=== PATIENT | female | born 1985 | race Caucasian/White ===

== ENCOUNTER → 2020-04-08 12:40 | Outpatient (BNVA) | payer OTHER, SELFPAY | PROVIDERS: Family Provider Registered Nurse; PCP Registered Nurse; Referring Provider Registered Nurse; Visit Provider Specialist | DX: G62.9 Polyneuropathy, unspecified (principal); R20.0 Anesthesia of skin; R20.2 Paresthesia of skin | CPT/HCPCS: 99204 ==

== ENCOUNTER → 2020-04-15 10:37 | Outpatient (BNVA) | payer OTHER, MEDICAID, SELFPAY | PROVIDERS: Family Provider Registered Nurse; PCP Registered Nurse; Visit Provider Specialist | DX: R20.0 Anesthesia of skin (principal); G62.9 Polyneuropathy, unspecified | CPT/HCPCS: 95913 ==

== ENCOUNTER 2020-05-07 10:33 | Outpatient (CLI) | payer MEDICAID, SELFPAY ==
--- NOTE | 2020-05-07 11:00 | MR_ITS ---
WS: [id number] MRI THORACIC SPINE with and without contrast HISTORY: numbness COMPARISON: None available. TECHNIQUE: Multiplanar sequences are performed in sagittal and axial planes. Postcontrast imaging in 2 planes. Normal thoracic alignment. No significant disc desiccation. No marrow edema or fracture. Signal withi n the cord is normal with no enhancement. Conus tapers normally at the L1 level. T1-2: Small nerve root diverticulum on the LEFT. T2-3: Normal. T3-4: Normal. T4-5: Normal. T5-6: Normal. T6-7: Normal. T7-8: Normal. T8-9: Normal. T9-10: Small nerve root diverticulum on the RIGHT. No stenosis. Mild facet joint arthropathy bilater ally. T10-11: Small nerve root sleeve diverticulum on the LEFT and mild facet arthritis. No significant st enosis. T11-12: RIGHT nerve root sleeve diverticulum without stenosis. No enhancing lesions within the cord. Normal-sized cord. Cortical cyst posterior LEFT kidney. MR/MR thoracic spine wo/w [id number] IMPRESSION: 1. No enhancing lesions or demyelinating lesions thoracic cord. 2. Multilevel small nerve root sleeve diverticula as above. No stenosis.
--- NOTE | 2020-05-07 11:45 | MR_ITS ---
WS: [id number] MRI CERVICAL SPINE with and without contrast. HISTORY: numbness and tingling COMPARISON: None available. Multiplanar, multisequence imaging is performed through the cervical spine with and without contrast. Straightening of the normal cervical lordosis. No marrow edema or fracture. Signal within the cervical cord is normal. Visualized posterior fossa is unremarkable. Craniocervical junction, C1 and C2 relationship, odontoid process and soft tissues are normal. C2-C3: Normal. C3-C4: Moderate size central disc protrusion with cord contact and mild deformity ventrally. Mild rodrigue tral stenosis. C4-C5: Normal. C5-C6: Mild osteophytic ridging with a small central disc protrusion with mild contact on the cord. M ild central stenosis. C6-C7: Mild annular disc bulging with a central disc protrusion. No cord contact. C7-T1: Normal. No enhancing lesions throughout the cervical cord or soft tissues of the neck. There is no evidence f or discitis or osteomyelitis. No demyelinating lesions. MR/MR cervical spine wo/w [id number] IMPRESSION: 1. No abnormal enhancement within the cervical cord or demyelinating lesions. 2. Central disc protrusions and cord contact at C3-4 and C5-6. 3. Smaller central protrusion without cord contact at C6-7.
== END 2020-05-07 10:34 | disposition home or self-care (01) ==
LOC: RADSHAW 10:38
PROVIDERS: PCP Registered Nurse; Visit Provider Specialist
DX: R20.0 Anesthesia of skin (principal); R20.2 Paresthesia of skin; M50.21 Other cervical disc displacement, high cervical region
CPT/HCPCS: 72156; 72157; A9579

== ENCOUNTER → 2020-05-14 14:24 | Outpatient (BNVA) | payer MEDICAID, SELFPAY | PROVIDERS: Family Provider Registered Nurse; PCP Registered Nurse; Visit Provider Internal Medicine Rheumatology | DX: M25.50 Pain in unspecified joint (principal); Z79.899 Other long term (current) drug therapy; G56.03 Carpal tunnel syndrome, bilateral upper limbs; R20.0 Anesthesia of skin; R20.2 Paresthesia of skin; R76.8 Other specified abnormal immunological findings in serum | CPT/HCPCS: 36415; 80076; 81001; 82306; 82565; 82570; 84156; 85025; 85651; 86140; 86431; 99204 ==

== ENCOUNTER 2020-05-15 10:19 | Outpatient (CLI) | payer MEDICAID, SELFPAY ==
--- NOTE | 2020-05-15 10:42 | XR_ITS ---
WS: [id number] Left foot, 3 views, 05/15/2020 Clinical Data: joint pain Comparison: Left foot, 03/09/2015. Findings: No fractures or dislocations are seen. No bone destruction or erosion is noted. The joint spaces and soft tissues are normal. XR/XR foot LT min 3V* [id number] Impression: Negative left foot.
--- NOTE | 2020-05-15 10:42 | XR_ITS ---
WS: [id number] Left hand, 05/15/2020 Clinical Data: joint pain Comparison: None. Findings: No fractures or dislocations are seen. The soft tissues are unremarkable. The joint spaces are normal XR/XR hand LT min 3V* [id number] Impression: Negative left hand.
--- NOTE | 2020-05-15 10:42 | XR_ITS ---
WS: [id number] Right foot, 3 views, 05/15/2020 Clinical Data: joint pain Comparison: None. Findings: No fractures or dislocations are seen. No bone destruction or erosion is noted. The joint spaces and soft tissues are normal. XR/XR foot RT min 3V* [id number] Impression: Negative right foot.
--- NOTE | 2020-05-15 10:42 | XR_ITS ---
WS: [id number] Right hand, 3 views, 05/15/2020 Clinical Data: joint pain Comparison: None. Findings: No fractures or dislocations are seen. The soft tissues are unremarkable. The joint space s are normal XR/XR hand RT min 3V* [id number] Impression: Negative right hand.
== END 2020-05-15 10:20 | disposition home or self-care (01) ==
LOC: RADWPI 10:23
PROVIDERS: Family Provider Registered Nurse; PCP Registered Nurse; Visit Provider Internal Medicine Rheumatology
DX: M25.541 Pain in joints of right hand (principal); M25.542 Pain in joints of left hand; M25.572 Pain in left ankle and joints of left foot; M25.571 Pain in right ankle and joints of right foot
CPT/HCPCS: 73130; 73630

== ENCOUNTER → 2020-06-10 10:39 | Outpatient (BNVA) | payer OTHER, SELFPAY | PROVIDERS: Family Provider Registered Nurse; PCP Registered Nurse; Visit Provider Specialist | DX: G56.03 Carpal tunnel syndrome, bilateral upper limbs (principal); R25.1 Tremor, unspecified; M79.7 Fibromyalgia | CPT/HCPCS: 99214 ==

== ENCOUNTER 2020-06-10 12:09 | Outpatient (CLI) | payer MEDICAID, SELFPAY ==
[2020-06-10 13:10] LABS: Free T4 Free Thyroxine 0.94 ng/dL (0.82-1.77); Thyroid Stimulating Hormone 1.62 uIU/mL (0.27-4.20)
== END 2020-06-10 12:10 | disposition home or self-care (01) ==
LOC: LAB 12:09
PROVIDERS: PCP Registered Nurse; Visit Provider Specialist
DX: R20.0 Anesthesia of skin (principal); R20.2 Paresthesia of skin
CPT/HCPCS: 36415; 84439; 84443

== ENCOUNTER → 2020-06-11 15:16 | Outpatient (BNVA) | payer MEDICAID, SELFPAY | PROVIDERS: PCP Registered Nurse; Visit Provider Registered Nurse | DX: R30.0 Dysuria (principal); B37.49 Other urogenital candidiasis | CPT/HCPCS: 81000 ==

== ENCOUNTER → 2020-06-17 13:21 | Outpatient (BNVA) | payer MEDICAID, SELFPAY | PROVIDERS: PCP Registered Nurse; Visit Provider Internal Medicine Rheumatology | DX: M25.50 Pain in unspecified joint (principal); Z79.899 Other long term (current) drug therapy; R76.8 Other specified abnormal immunological findings in serum; M79.7 Fibromyalgia; G56.03 Carpal tunnel syndrome, bilateral upper limbs | CPT/HCPCS: 99214 ==

== ENCOUNTER 2020-06-25 08:00 | Day surgery (SDC) | payer MEDICAID, SELFPAY ==
[2020-06-24 16:40] VITALS: BMI 33.4
[2020-06-25 08:23] LABS: OR HCG Qualitative Urine Negative (Negative)
[2020-06-25 08:26] VITALS: BP 121/71; PULSE 82; RESP 18; TEMP 36.7; O2SAT 98
--- NOTE | 2020-06-25 08:35 | P.ANESASSM_ITS ---
Pre-Anesthetic Assessment Pre-Anesthetic Assessment: Height/Weight: Height 1.73 m Weight 99.79 kg Temp Pulse Resp BP Pulse Ox 98.0 F 82 18 121/71 98 06/25/20 08:26 06/25/20 08:26 06/25/20 08:26 06/25/20 08:26 06/25/20 08:26 Preop Diagnosis: Right carpal tunnel syndrome Proposed Procedure: Operation Date: 06/25/20 09:35 Proposed Procedures p Carpal Tunnel Release right(Right) - Stephon Chambers MD Familial anesthetic complications: None Last intake: Intake Last Liquid Date 06/24/20 Last Liquid Time 21:00 Last Solid Date 06/24/20 Last Solid Time 21:00 Social: Social History: No alcohol and No tobacco Exam: Pre-Anes Outpt Exam: alert, oriented x 3, clear to auscultation bilaterally and regular rate & rhythm Airway: Cervical ROM: WNL MP: 3 Dentition: Full GI: GI: GERD Musc/skel: Musc/skel: Fibromyalgia Neuropsych: Comments: tremor Anesthetic Plan: ASA status: 2 Anesthesia: MAC and Regional (specify below) Other: jose carlos block Risk of > 500 ml blood loss (7ml/kg in children): No PFSH Anesthesia PFSH: Medical History Depression History of acute cholecystitis Hypertension Positive LETICIA (antinuclear antibody) Surgical History History of section x2 Family History Other CAD (coronary artery disease) Diabetes Family history of premature coronary artery disease Hypertension Rheumatoid arthritis Stroke Denies family history of Lupus Lung disease Cancer Social History Smoking and tobacco status: never smoked Alcohol intake: never History of recent travel: Yes (travels from [facility]) Data Anesthesia Other Labs: Laboratory Results - last 48 hr 06/25/20 08:22 Urine HCG, Qual Negative Cardiac Studies: No Data to Display
[2020-06-25] MEDS: sodium chloride 0.9% 1,000 ML 30 ML IV (08:36)
--- NOTE | 2020-06-25 09:48 | W.PM.OPSUD ---
Surgery/Procedure H&P Update DATE OF PROCEDURE: June 25, 2020 DATE H&P PERFORMED: 06/04/20 PREOP DIAGNOSIS: Right carpal tunnel syndrome PLANNED PROCEDURE: Operation Date: 06/25/20 09:35 Proposed Procedures p Carpal Tunnel Release right(Right) - Stephon Chambers MD
--- NOTE | 2020-06-25 10:30 | P.OP_ITS ---
Operative Report Date of procedure: June 25, 2020 Pre-op Diagnosis: Right carpal tunnel syndrome Post-op diagnosis: same Post-op Findings: Same Procedure Done: Right carpal tunnel release Pathology: none sent Surgeon: Stephon Chambers Anesthesia: Local ([place] block) Estimated blood loss (mL): 5 Tourniquet time (min): 19 Complications: None Findings: No masses or space-occupying lesions were seen within the carpal tunnel Condition: stable Disposition: same day Procedure: Patient was taken to the operating room and anesthesia provided by the anesthesia service. She was prepped and draped with the arm exposed. A timeout was performed. A 3 cm long incision was made in line with the fourth ray from the distal edge of the carpal tunnel extending proximally. The subcutaneous fat and palmar fascia was divided with a scalpel blade. Under loupe magnification the ulnar neurovascular bundle was identified distally. A hemostat could be passed under the transverse carpal ligament allowing the distal 25% to be divided. A slotted guide was then passed beneath the transverse carpal ligament and the middle 50% divided. Blunt scissors were then passed over the guide freeing the proximal ligament. The tourniquet was deflated. Hemostasis provided with electrocautery. Wound edges were infiltrated with 10 cc of a half percent Marcaine solution. Skin edges were reapproximated with 3-0 Prolene. Sterile dressings were applied. The patient was taken to the recovery room in stable condition
[2020-06-25 10:47] VITALS: BP 157/77; PULSE 66; RESP 18; TEMP 36.3; O2SAT 97
[2020-06-25 11:07] VITALS: BP 150/85; PULSE 59; RESP 18; O2SAT 98
== END 2020-06-25 11:11 | disposition home or self-care (01) ==
PROVIDERS: Anesthesiology; PCP Registered Nurse; Visit Provider Orthopaedic Surgery
PROC: (CPT 64721; principal; 2020-06-25 09:35)
DX: G56.01 Carpal tunnel syndrome, right upper limb (principal); M79.7 Fibromyalgia; K21.9 Gastro-esophageal reflux disease without esophagitis; I10 Essential (primary) hypertension; F32.9 Major depressive disorder, single episode, unspecified
CPT/HCPCS: 64721; 12345; 81025; 84703; J0690; J2250; J2704; J3010; J3490; J7030

== ENCOUNTER 2020-08-08 16:06 | Observation (INO) | payer MEDICAID, SELFPAY ==
[2020-08-08] VITALS (7 sets, daily range): BP systolic 125–151; BP diastolic 74–88; PULSE 64–84; RESP 14–19; TEMP 36.4–36.8; O2SAT 95–100; BMI 34.3
--- NOTE | 2020-08-08 18:49 | CTR_ITS ---
PROCEDURE INFORMATION: Exam: CT Abdomen And Pelvis With Contrast Exam date and time: 08/08/2020 7:03 PM Age: 34 years old Clinical indication: Prior surgery; Surgery date: 6+ months; Surgery type: Gb, c-sect; Patient HX: C/O bloody stool and nausea; Additional info: Abdominal pain TECHNIQUE: Imaging protocol: Computed tomography of the abdomen and pelvis with intravenous contrast. Radiation optimization: All CT scans at this facility use at least one of these dose optimization techniques: automated exposure control; mA and/or kV adjustment per patient size (includes targeted exams where dose is matched to clinical indication); or iterative reconstruction. Contrast material: OMNI 300; Contrast volume: 95 ml; Contrast route: INTRAVENOUS (IV); COMPARISON: US gall bladder [id number] 07/07/2017 7:57 AM RADIATION DOSE METRICS: Total DLP (mGy-cm): 1396.36 FINDINGS: Mediastinal space: A small hiatal hernia is present. Liver: Unremarkable.No mass. Gallbladder and bile ducts: There has been a cholecystectomy. There is no common bile duct dilation. Pancreas: Normal. No ductal dilation. Spleen: Normal. No splenomegaly. Adrenals: Normal. No mass. Kidneys and ureters: There is no evidence of hydronephrosis. There are multiple renal hypodensities that cannot be further characterized on the current examination. There is no evidence of renal calcifications. There is a 1.5 cm midpole simple cyst in the right kidney. No follow-up is necessary. Stomach and bowel: There is no evidence of intestinal perforation or obstruction. Appendix: The appendix demonstrates mild diffuse distention, consistent with mild or early acute appendicitis. The transverse measurement the appendix is 11 mm in the wall appears mildly thickened and enhancing with fluid in the lumen. There is subtle haziness of the periappendiceal fat. Intraperitoneal space: Unremarkable. No free air. No significant fluid collection. Vasculature: Unremarkable.No abdominal aortic aneurysm. Lymph nodes: There are lymph nodes in the groin with the largest lymph node on the right near the upper limits of normal measuring 1 cm in short axis. No pathologic adenopathy. Urinary bladder: Unremarkable as visualized. Reproductive: Unremarkable as visualized. Bones/joints: Unremarkable. No acute fracture. Soft tissues: There is a fat-containing umbilical hernia. CT/CT abdomen pelvis w con* [id number] IMPRESSION: Wall thickening and enhancement of the appendix with subtle haziness of the adjacent fat concerning for early or mild acute appendicitis. No abscess or free air. COMMENTS: Consistent with the [employer]'s Incidental Findings Committee white paper (J Am Mar Radiol 2018): Any incidental renal lesion less than 1 cm or classified as too small to characterize, or any incidental cystic renal lesion characterized as simple-appearing, is likely benign. No follow-up imaging is recommended for these lesions per consensus recommendations based on imaging criteria. Radiation Dose CTDIVOL = (mGy): DLP = 1396.36 (mGy-cm)
[2020-08-08 19:05] LABS: Basophils # 0.1 10^3/uL (0.0-0.1); Basophils % 0.5 %; Eosinophils # 0.1 10^3/uL (0.0-0.8); Eosinophils % 0.5 %; Hematocrit 39.3 % (37.0-47.0); Hemoglobin 12.3 g/dL (11.5-15.3); Lymphocytes # 2.1 10^3/uL (0.8-4.8); Lymphocytes % 21.6 %; Mean Corpuscular HGB Conc 31.3 g/dL (30.0-36.0); Mean Corpuscular Volume 86.4 fL (81-99); Mean Platelet Volume 9.9 fL (7.4-10.4); Monocytes # 0.7 10^3/uL (0.2-0.9); Monocytes % 6.7 %; Neutrophils # 6.78 10^3/uL (1.8-7.7); Neutrophils % 70.5 %; Nucleated Red Blood Cells % 0 %; Platelet Count 332 10^3/cmm (130-400); Red Blood Count 4.55 10^6/uL (4.1-5.3); Red Cell Distribution Width 13.5 % (12.1-15.1); White Blood Count 9.6 10^3/uL (4.0-10.0)
[2020-08-08] MEDS: iohexol 300 mg/mL 100 mL Btl IV (19:11)
[2020-08-08] MEDS: morphine 4 mg/mL SDV 1 mL IVP (19:20)
[2020-08-08] MEDS: ondansetron 2 mg/ML SDV 2 mL 4 MG IVP (19:20)
[2020-08-08 19:27] LABS: Alanine Aminotransferase 19 U/L (0-33); Albumin Level 4.7 g/dL (3.5-5.2); Alkaline Phosphatase 85 IU/L (35-105); Aspartate Amino Transferase 26 U/L (0-32); Blood Urea Nitrogen 11 mg/dL (6-20); Calcium 9.6 mg/dL (8.5-10.5); Carbon Dioxide 26 mmol/L (22-29); Chloride 99 mmol/L (98-107); Globulin 3.3 g/dL (1.3-4.6); Glomerular Filtration Rate 82.1 mL/min (90-130); Glucose 106 mg/dL (65-115); Lipase 52 U/L (13-60); Osmolality Calculated 280 mOsm/kg (285-295); Sodium 135 mmol/L (136-145); Total Bilirubin 0.2 mg/dL (0.15-1.2)
--- NOTE | 2020-08-08 19:33 | W.ED.GIBLEED ---
HPI - GI Bleed General: Chief complaint: GI Bleed Stated complaint: blood in stool Time Seen by Provider: 08/08/20 18:36 Source: patient Mode of arrival: ambulatory History of Present Illness: HPI Narrative: Ree is a nice 34-year-old female who comes in complaining of small amounts of brown possible blood clots in her stool. Patient states she is had some cramping abdominal pain with this. Is been nauseated but has not vomited. Patient denies any fevers or chills. She denies any black tarry stools or similar symptoms to this in the past. Patient states that the symptoms are going on for the past 4 hours and the amount of what she believes is blood has been small in amount. She does not believe she has any hemorrhoids. Associated symptoms: Reports abdominal pain and nausea; Denies chills, easy bruising, fever(s), headache(s), malaise, rash, syncope or vomiting Review of Systems Const: Denies: fever(s), chills, body aches, fatigue, malaise or diaphoresis Eyes: Denies: change in vision, blurry vision, photophobia, eye discomfort, eye discharge, eye redness or yellow eyes ENMT: Denies: throat pain, odynophagia, hoarseness, swelling of lips/tongue, ear or mastoid pain, ear discharge, change in hearing or nasal discharge Card: Denies: chest pain, palpitations, irregular heart rhythm, edema, lightheadedness, syncope, pre-syncope, dyspnea on exertion or orthopnea Resp: Denies: dyspnea, productive cough, non-productive cough, wheezing, hemoptysis or chest congestion GI: Reports: abdominal pain, nausea and hematochezia; Denies: vomiting, hematemesis, coffee ground emesis, heartburn, diarrhea, constipation, GI cramping or melena : Denies: flank pain, dysuria, urinary frequency, urinary urgency or hematuria Musc: Denies: neck pain, back pain, extremity pain, extremity swelling, joint pain, joint swelling, joint redness, joint warmth or joint stiffness Skin/Breast: Denies: rash, pruritus, erythema, skin pain or skin tenderness Neuro: Denies: headache(s), numbness in extremities, weakness in extremities, sensory changes, lack of coordination, difficulty walking, dizziness, vertigo, confusion, Slurred speech present or seizure-like activity Kartik/Lymph: Denies: easy bruising, easy bleeding, petechiae, purpura or enlarged lymph nodes All/Imm: Denies: urticaria, throat swelling, tongue swelling, facial swelling or acute wheezing PFSH ED PFSH: Medical History Depression History of acute cholecystitis Hypertension Positive LETICIA (antinuclear antibody) Surgical History History of section x2 Family History Other CAD (coronary artery disease) Diabetes Family history of premature coronary artery disease Hypertension Rheumatoid arthritis Stroke Denies family history of Lupus Lung disease Cancer Social History Smoking and tobacco status: never smoked Alcohol intake: never History of recent travel: Yes (travels from [facility]) Female Reproductive History: Date of last menstrual period: 08/01/20 Physical Exam Const: COMMON NORMALS: no acute distress, patient oriented x3, no limitations and alert GENERAL APPEARANCE: cooperative HENMT: COMMON NORMALS: normocephalic, atraumatic, external ears normal, EAC's normal and Normal external nose present HEAD & SCALP: normal to inspection, normocephalic and atraumatic FACE & SINUS: normal facial exam and face symmetric NOSE: Normal external nose present and Normal nares present EXTERNAL EAR: Yes external ears normal EXTERNAL AUDITORY CANAL: EAC's normal MOUTH: Normal oral and palatal mucosa present, lip normal and tongue normal Eye: COMMON NORMALS: Equal, round and reactive pupils present and conjunctivae normal GENERAL EYE: appearance normal, both eyes and all related structures ALIGNMENT: Yes alignment normal PERIORBITAL: periorbital findings normal EYELID: eyelids normal CONJUNCTIVA: Yes conjunctivae normal SCLERA: sclerae normal PUPIL: Yes Equal, round and reactive pupils present Neck/C-Spine: COMMON NORMALS: full ROM, no lymphadenopathy, supple, no meningeal signs and no JVD GENERAL: Yes normal visual inspection and Yes trachea midline Chest: COMMONS NORMALS: normal inspection of the chest and normal palpation of entire chest wall Resp: COMMON NORMALS: normal respiratory effort, No retractions, No use of accessory muscles and clear to auscultation bilaterally EFFORT & INSPECTION: Yes able to speak in complete sentences and Yes symmetric chest movement AUSCULTATION: clear to auscultation bilaterally, no crackles, no rales, no rhonchi and no wheezes Cardio: COMMON NORMALS: no JVD, regular rate, regular rhythm, S1 normal heart sound present and S2 normal heart sound present RATE: regular rate RHYTHM: regular rhythm HEART SOUNDS: S1 normal heart sound present, S2 normal heart sound present, no click, no gallops, no murmurs and no rubs GI: COMMON NORMALS: Soft to palpation and No hepatosplenomegaly present PALPATION: Yes Soft to palpation, No Tenderness to palpation present (GI), No Guarding due to palpation present (GI), No Rigid due to palpation, Yes No hepatosplenomegaly present, No Hernia present, No Palpable mass present and No Pulsatile mass present RECTAL EXAM: visual inspection normal, normal sphincter tone and no hemorrhoids noted OTHER: Heme-negative stool : COMMON NORMALS: Yes no CVA tenderness BLADDER/KIDNEY EXAM: Yes no CVA tenderness EXTERNAL FEMALE EXAM: No Hernia present Back/Pelvis: COMMON NORMALS: no CVA tenderness, thoracic and lumbar spine normal to inspection, no thoracic nor lumbar tenderness and thoraco-lumbar ROM normal Extremity: COMMON NORMALS: normal to inspection, full ROM, capillary refill normal, no joint enlargement, no clubbing, cyanosis or edema and no calf tenderness Neuro: COMMON NORMALS: patient oriented x3, CN's II-XII intact bilaterally, moves all extremities, no focal motor deficits and no sensory deficits noted SENSORIUM/ORIENTATION: Yes alert MENINGEAL SIGNS: Yes no meningeal signs SPEECH: speech normal Psych: COMMON NORMALS: mental status grossly normal, Normal thought process present, cooperative, normal affect, speech normal and activity/motor behavior normal SPEECH: Yes normal speech THOUGHT PROCESS: Normal thought process present Skin: COMMON NORMALS: no rashes or lesions noted, turgor normal, no jaundice, no petechiae and no mottling GENERAL SKIN EXAM: no rashes or lesions noted and turgor normal Course Vital Signs: Vital signs: Vital Signs Temperature 97.8 F 08/09/20 00:00 Pulse Rate 58 L 08/09/20 00:00 Respiratory Rate 18 08/09/20 00:00 Blood Pressure 114/74 08/09/20 00:00 Pulse Oximetry 97 08/09/20 00:00 MDM - GI Bleed MDM Narrative: Medical decision making narrative: Patient CT scan surprisingly shows appendicitis. Is a very atypical presentation. I will go ahead and start Zosyn here. I reviewed the case with Dr. Cardoza who agrees to admission for appendectomy likely tomorrow. Lab Data: Labs: Lab Results 08/08/20 08/08/20 08/08/20 Range/Units 16:15 18:35 18:35 WBC 9.6 (4.0-10.0) 10^3/ uL RBC 4.55 (4.1-5.3) 10^6/u L Hgb 12.3 (11.5-15.3) g/dL Hct 39.3 (37.0-47.0) % MCV 86.4 (81-99) fL MCH 27.0 L (28.0-34.0) pg MCHC 31.3 (30.0-36.0) g/dL RDW 13.5 (12.1-15.1) % Plt Count 332 (130-400) 10^3/c mm MPV 9.9 (7.4-10.4) fL Neut % (Auto) 70.5 % Lymph % (Auto) 21.6 % [place] % (Auto) 6.7 % Eos % (Auto) 0.5 % Baso % (Auto) 0.5 % Neut # (Auto) 6.78 (1.8-7.7) 10^3/u L Lymph # (Auto) 2.1 (0.8-4.8) 10^3/u L [place] # (Auto) 0.7 (0.2-0.9) 10^3/u L Eos # (Auto) 0.1 (0.0-0.8) 10^3/u L Baso # (Auto) 0.1 (0.0-0.1) 10^3/u L Nucleated RBC % (a uto) 0 % Nucleated RBCs # 0.0 /100WBC Sodium 135 L (136-145) mmol/L Potassium 4.0 (3.5-5.1) mmol/L Chloride 99 (98-107) mmol/L Carbon Dioxide 26 (22-29) mmol/L Anion Gap 14.0 (5-19) BUN 11 (6-20) mg/dL Creatinine 0.8 (0.5-0.9) mg/dL GFR Calculation 82.1 L (90-130) mL/min Glucose 106 (65-115) mg/dL Calculated Osmolal ity 280 L (285-295) mOsm/k g Calcium 9.6 (8.5-10.5) mg/dL Total Bilirubin 0.2 (0.15-1.2) mg/dL AST 26 (0-32) U/L ALT 19 (0-33) U/L Alkaline Phosphata se 85 (35-105) IU/L Total Protein 8.0 (6.6-8.7) g/dL Albumin 4.7 (3.5-5.2) g/dL Globulin 3.3 (1.3-4.6) g/dL Lipase 52 (13-60) U/L Urine Color (Yellow) Urine Appearance (CLEAR) Urine pH (5-7) Ur Specific [place]it y (1.005-1.030) Urine Protein (Negative) Urine Glucose (UA) (Normal) Urine Ketones (Negative) Urine Blood (Negative) Urine Nitrate (Negative) Urine Bilirubin (Negative) Urine Urobilinogen (Negative) mg/dL Ur Leukocyte Aaliyah ase (Negative) Urine HCG, Qual Negative (Negative) 08/08/20 Range/Units 19:23 WBC (4.0-10.0) 10^3/ uL RBC (4.1-5.3) 10^6/u L Hgb (11.5-15.3) g/dL Hct (37.0-47.0) % MCV (81-99) fL MCH (28.0-34.0) pg MCHC (30.0-36.0) g/dL RDW (12.1-15.1) % Plt Count (130-400) 10^3/c mm MPV (7.4-10.4) fL Neut % (Auto) % Lymph % (Auto) % [place] % (Auto) % Eos % (Auto) % Baso % (Auto) % Neut # (Auto) (1.8-7.7) 10^3/u L Lymph # (Auto) (0.8-4.8) 10^3/u L [place] # (Auto) (0.2-0.9) 10^3/u L Eos # (Auto) (0.0-0.8) 10^3/u L Baso # (Auto) (0.0-0.1) 10^3/u L Nucleated RBC % (a uto) % Nucleated RBCs # /100WBC Sodium (136-145) mmol/L Potassium (3.5-5.1) mmol/L Chloride (98-107) mmol/L Carbon Dioxide (22-29) mmol/L Anion Gap (5-19) BUN (6-20) mg/dL Creatinine (0.5-0.9) mg/dL GFR Calculation (90-130) mL/min Glucose (65-115) mg/dL Calculated Osmolal ity (285-295) mOsm/k g Calcium (8.5-10.5) mg/dL Total Bilirubin (0.15-1.2) mg/dL AST (0-32) U/L ALT (0-33) U/L Alkaline Phosphata se (35-105) IU/L Total Protein (6.6-8.7) g/dL Albumin (3.5-5.2) g/dL Globulin (1.3-4.6) g/dL Lipase (13-60) U/L Urine Color Yellow (Yellow) Urine Appearance Clear (CLEAR) Urine pH 6.5 (5-7) Ur Specific Gravit y 1.005 (1.005-1.030) Urine Protein Neg (Negative) Urine Glucose (UA) Norm (Normal) Urine Ketones Negative (Negative) Urine Blood Neg (Negative) Urine Nitrate Negative (Negative) Urine Bilirubin Neg (Negative) Urine Urobilinogen Norm (Negative) mg/dL Ur Leukocyte Aaliyah ase Negative (Negative) Urine HCG, Qual (Negative) Imaging Data^: CT Abd/Pel: Radiologist's impression: [address] [place] [address] CT Scan Report Signed with Addenda Patient: Ree Russell Unit #: [id number] : [id number] Age/Sex: 34 / F ADM Date: 08/08/20 Loc: ER Room/Bed: Attending Dr: Ordering Provider/Ordering MD: Jerica Lee DO Date of Service: 08/08/20 Procedure(s): CT abdomen pelvis w con* [id number] Accession Number(s): [id number] Report Number: [id number]/CT abdomen pelvis w con* [id number] THIS REPORT CONTAINS FINDINGS THAT MAY BE CRITICAL TO PATIENT CARE. The findings were verbally communicated via telephone conference with Jerica Lee at 7:48 PM CDT on 08/08/2020. The findings were acknowledged and understood. Radiation Dose CTDIVOL = (mGy): DLP = 1396.36 (mGy-cm) Addendum Dictated By: Petra Castañeda Addendum Signed By: Petra Castañeda Signed Date/Time: 08/08/20 1950 Addendum Cosigned By: PROCEDURE INFORMATION: Exam: CT Abdomen And Pelvis With Contrast Exam date and time: 08/08/2020 7:03 PM Age: 34 years old Clinical indication: Prior surgery; Surgery date: 6+ months; Surgery type: Gb, c-sect; Patient HX: C/O bloody stool and nausea; Additional info: Abdominal pain TECHNIQUE: Imaging protocol: Computed tomography of the abdomen and pelvis with intravenous contrast. Radiation optimization: All CT scans at this facility use at least one of these dose optimization techniques: automated exposure control; mA and/or kV adjustment per patient size (includes targeted exams where dose is matched to clinical indication); or iterative reconstruction. Contrast material: OMNI 300; Contrast volume: 95 ml; Contrast route: INTRAVENOUS (IV); COMPARISON: US gall bladder [id number] 07/07/2017 7:57 AM RADIATION DOSE METRICS: Total DLP (mGy-cm): 1396.36 FINDINGS: Mediastinal space: A small hiatal hernia is present. Liver: Unremarkable.No mass. Gallbladder and bile ducts: There has been a cholecystectomy. There is no common bile duct dilation. Pancreas: Normal. No ductal dilation. Spleen: Normal. No splenomegaly. Adrenals: Normal. No mass. Kidneys and ureters: There is no evidence of hydronephrosis. There are multiple renal hypodensities that cannot be further characterized on the current examination. There is no evidence of renal calcifications. There is a 1.5 cm midpole simple cyst in the right kidney. No follow-up is necessary. Stomach and bowel: There is no evidence of intestinal perforation or obstruction. Appendix: The appendix demonstrates mild diffuse distention, consistent with mild or early acute appendicitis. The transverse measurement the appendix is 11 mm in the wall appears mildly thickened and enhancing with fluid in the lumen. There is subtle haziness of the periappendiceal fat. Intraperitoneal space: Unremarkable. No free air. No significant fluid collection. Vasculature: Unremarkable.No abdominal aortic aneurysm. Lymph nodes: There are lymph nodes in the groin with the largest lymph node on the right near the upper limits of normal measuring 1 cm in short axis. No pathologic adenopathy. Urinary bladder: Unremarkable as visualized. Reproductive: Unremarkable as visualized. Bones/joints: Unremarkable. No acute fracture. Soft tissues: There is a fat-containing umbilical hernia. CT/CT abdomen pelvis w con* [id number] IMPRESSION: Wall thickening and enhancement of the appendix with subtle haziness of the adjacent fat concerning for early or mild acute appendicitis. No abscess or free air. COMMENTS: Consistent with the [employer]'s Incidental Findings Committee white paper (J Am Mar Radiol 2018): Any incidental renal lesion less than 1 cm or classified as too small to characterize, or any incidental cystic renal lesion characterized as simple-appearing, is likely benign. No follow-up imaging is recommended for these lesions per consensus recommendations based on imaging criteria. 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
[2020-08-08 19:58] LABS: Add Urine Microscopic? NO
[2020-08-08 20:10] LABS: Bilirubin Urine Neg (Negative); Blood Urine Neg (Negative); Glucose Urine UA Norm (Normal); Ketones Urine Negative (Negative); Leukocyte Esterase Urine Negative (Negative); Nitrate Urine Negative (Negative); Protein Urine Neg (Negative); Specific Gravity, Urine 1.005 (1.005-1.030); Urine Appearance Clear (CLEAR); Urine Color Yellow (Yellow); Urobilinogen Urine Norm (Negative); pH Urine 6.5 (5-7)
[2020-08-08] MEDS: piperacillin-tazobactam 4.5 GM in sodium chloride 0.9% (plus) 50 ML IV (20:23)
[2020-08-08] MEDS: sodium chloride 0.9% 1,000 ML 150 ML IV (21:26)
--- NOTE | 2020-08-08 23:26 | PC.NURSE ---
Patient home meds locked in [facility]
[2020-08-09] VITALS (13 sets, daily range): BP systolic 114–152; BP diastolic 74–89; PULSE 58–89; RESP 14–20; TEMP 36.4–36.8; O2SAT 94–98
[2020-08-09] MEDS: morphine 4 mg/mL SDV 1 mL IVP (02:02)
[2020-08-09] MEDS: ondansetron 2 mg/ML SDV 2 mL 4 MG IVP (02:02)
[2020-08-09] MEDS: piperacillin-tazobactam 3.375 GM in sodium chloride 0.9% (plus) 50 ML IV (04:00)
[2020-08-09] MEDS: sodium chloride 0.9% 1,000 ML 150 ML IV (04:00)
[2020-08-09 05:14] LABS: Basophils # 0.1 10^3/uL (0.0-0.1); Basophils % 0.6 %; Eosinophils # 0.1 10^3/uL (0.0-0.8); Eosinophils % 1.3 %; Hematocrit 36.1 % (37.0-47.0); Hemoglobin 10.9 g/dL (11.5-15.3); Lymphocytes # 1.9 10^3/uL (0.8-4.8); Lymphocytes % 24.8 %; Mean Corpuscular HGB Conc 30.2 g/dL (30.0-36.0); Mean Corpuscular Hemoglobin 26.7 pg (28.0-34.0); Mean Corpuscular Volume 88.3 fL (81-99); Monocytes # 0.5 10^3/uL (0.2-0.9); Monocytes % 6.3 %; Neutrophils # 5.16 10^3/uL (1.8-7.7); Neutrophils % 66.7 %; Nucleated Red Blood Cells % 0 %; Platelet Count 261 10^3/cmm (130-400); Red Blood Count 4.09 10^6/uL (4.1-5.3); Red Cell Distribution Width 13.4 % (12.1-15.1); White Blood Count 7.7 10^3/uL (4.0-10.0)
[2020-08-09 05:48] LABS: Anion Gap 11.8 (5-19); Blood Urea Nitrogen 10 mg/dL (6-20); Calcium 8.7 mg/dL (8.5-10.5); Carbon Dioxide 26 mmol/L (22-29); Chloride 102 mmol/L (98-107); Glomerular Filtration Rate 71.7 mL/min (90-130); Glucose 95 mg/dL (65-115); Osmolality Calculated 281 mOsm/kg (285-295); Potassium 3.8 mmol/L (3.5-5.1); Sodium 136 mmol/L (136-145)
--- NOTE | 2020-08-09 08:17 | PM.HP ---
Providers/Chief Complaint Admitting Physician: Axel Cardoza MD Primary Care Provider: LENA Patel Chief Complaint: blood in stool History of Present Illness Ree Russell is a 34 year old female who presented to the ER last night with complaints of cramping lower abdominal pain associated with bleeding per rectum. Patient states that she is never had bleeding per rectum before. She had 2 episodes of loose stools but otherwise has been doing well. Denies any fevers chills constipation or vomiting. She had some nausea. Today she has lower abdominal pain but denies any nausea or vomiting. Review of Systems General: Reports: 10 or more systems reviewed and unremarkable except in HPI and below Medications/Allergies Home Medications Medication Instructions Recorded Confirmed Last Taken Type propranolol 20 mg tablet 20 mg PO BID #60 tab 06/10/20 08/05/20 Unknown Rx gabapentin 300 mg capsule See Rx Instructions PO TID #90 cap 06/17/20 08/08/20 Unknown Rx hydroxychloroquine 200 mg tablet 200 mg PO BID #60 tab 06/17/20 08/08/20 Unknown Rx trazodone 50 mg tablet See Rx Instructions .ROUTE 07/27/20 08/05/20 Unknown Rx .COMPLEX #30 tab sertraline 100 mg tablet See Rx Instructions .ROUTE 08/03/20 08/05/20 Unknown Rx .COMPLEX #90 tab Dexilant 60 mg PO DAILY 08/08/20 08/08/20 Unknown History hydroxyzine HCl 25 mg PO BID PRN 08/08/20 08/08/20 Unknown History meloxicam 7.5 mg PO DAILY 08/08/20 08/08/20 Unknown History metoprolol tartrate 25 mg PO BID 08/08/20 08/08/20 Unknown History montelukast 10 mg PO DAILY 08/08/20 08/08/20 Unknown History Allergies Allergy/AdvReac Type Severity Reaction Status Date / Time No Known Allergies Allergy Verified 08/05/20 10:38 PFSH Acute PFSH: Medical History Depression History of acute cholecystitis Hypertension Surgical History History of section x2 Family History Other CAD (coronary artery disease) Diabetes Family history of premature coronary artery disease Hypertension Rheumatoid arthritis Stroke Denies family history of Lupus Lung disease Cancer Social History Smoking and tobacco status: never smoked Alcohol intake: never History of recent travel: Yes (travels from [facility]) Female Reproductive History: Date of last menstrual period: 08/01/20 Vitals/I&O/Wt Last Vital Signs Temp 98.0 F 08/09/20 07:34 Pulse 75 08/09/20 07:34 Resp 18 08/09/20 07:34 BP 126/81 08/09/20 07:34 Pulse Ox 98 08/09/20 07:34 08/08/20 08/09/20 08/09/20 22:59 06:59 14:59 Intake Total 985 / 985 Output Total 550 / 750 200 / 750 Balance -550 / 235 785 / 235 Weight last 48 hrs Weight 226 lb Physical Exam Narrative: EXAM NARRATIVE: HEENT: Normocephalic Eye: Sclera /conjunctiva normal Respiratory and chest: Bilateral clear breath sounds on auscultation Cardiovascular: Normal S1 and S2 heart sounds Abdomen: Soft to palpation, tender right lower quadrant, no guarding or rigidity Neurological: Oriented to place person and time Skin: Intact, no lesions appreciated on gross exam Data : 08/09/20 05:02 08/09/20 05:02 A&P Assessment and plan (1) Acute appendicitis: 34-year-old female presented yesterday to the ER with cramping abdominal pain and bleeding per rectum. Patient has normal white count but CT scan showed early appendicitis. Discussed the findings with the patient, explained the need for further work-up if she continues to have bleeding per rectum since it is not typical of acute appendicitis. Also discussed the possibility of other pathology that could mimic acute appendicitis which will be evaluated during surgery and addressed as needed. Procedure, risks, benefits and alternatives have been discussed with the patient who wishes to proceed with surgery. 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
--- NOTE | 2020-08-09 08:24 | P.ANESASSM_ITS ---
Pre-Anesthetic Assessment Pre-Anesthetic Assessment: Height/Weight: Height 1.73 m Weight 102.512 kg Temp Pulse Resp BP Pulse Ox 98.0 F 75 18 126/81 98 08/09/20 07:34 08/09/20 07:34 08/09/20 07:34 08/09/20 07:34 08/09/20 07:34 Preop Diagnosis: acute appendicitis Proposed Procedure: Operation Date: 08/09/20 08:50 Proposed Procedures p Appendectomy(Not Applicable) - Axel Cardoza MD Familial anesthetic complications: None Was Beta Rayshawn taken within 24 hours: N/A Last intake: Intake Last Liquid Date 08/08/20 Last Liquid Time 18:00 Last Solid Date 08/08/20 Last Solid Time 18:00 Social: Social History: No alcohol and No tobacco Exam: Pre-Anes Outpt Exam: alert, oriented x 3, clear to auscultation bilaterally and regular rate & rhythm Airway: Cervical ROM: WNL MP: 3 Dentition: Full CV/HEM: CV/HEM: HTN Neuropsych: Neuropsych: Neuropathy Comments: tremor Anesthetic Plan: ASA status: 2 Anesthesia: General Risk of > 500 ml blood loss (7ml/kg in children): No Meds/Allergies Current Medications: Current Medications Generic Name Dose Route Start Last Admin Trade Name Freq PRN Reason Stop Dose Admin Sodium Chloride 1,000 mls @ 150 m ls/hr 08/08/20 20:15 08/09/20 04:00 Sodium Chloride 0.9% IV 150 mls/hr .[id number] DHEERAJ Administration Piperacillin Sod/T azobactam 50 mls @ 12.5 mls /hr 08/09/20 04:30 08/09/20 04:00 Sod 3.375 gm/ So dium Chloride IV 12.5 mls/hr Q8H DHEERAJ Administration Protocol Morphine Sulfate 4 mg 08/08/20 20:06 08/09/20 02:02 Morphine IVP 4 mg Q4H PRN Administration SEVERE PAIN Ondansetron HCl 4 mg 08/08/20 20:06 08/09/20 02:02 Zofran IVP 4 mg Q6H PRN Administration NAUSEA AND VOMITI NG PFSH Anesthesia PFSH: Medical History Depression History of acute cholecystitis Hypertension Surgical History History of section x2 Family History Other CAD (coronary artery disease) Diabetes Family history of premature coronary artery disease Hypertension Rheumatoid arthritis Stroke Denies family history of Lupus Lung disease Cancer Social History Smoking and tobacco status: never smoked Alcohol intake: never History of recent travel: Yes (travels from [facility]) Female Reproductive History: Date of last menstrual period: 08/01/20 Data Anesthesia CBC & Chem 7: 08/09/20 05:02 08/09/20 05:02 Other Labs: Laboratory Results - last 48 hr 08/08/20 08/08/20 08/08/20 16:15 18:35 18:35 WBC 9.6 RBC 4.55 Hgb 12.3 Hct 39.3 MCV 86.4 MCH 27.0 L MCHC 31.3 RDW 13.5 Plt Count 332 MPV 9.9 Neut % (Auto) 70.5 Lymph % (Auto) 21.6 [place] % (Auto) 6.7 Eos % (Auto) 0.5 Baso % (Auto) 0.5 Neut # (Auto) 6.78 Lymph # (Auto) 2.1 [place] # (Auto) 0.7 Eos # (Auto) 0.1 Baso # (Auto) 0.1 Nucleated RBC % (auto) 0 Nucleated RBCs # 0.0 APTT Sodium 135 L Potassium 4.0 Chloride 99 Carbon Dioxide 26 Anion Gap 14.0 BUN 11 Creatinine 0.8 GFR Calculation 82.1 L Glucose 106 Calculated Osmolality 280 L Calcium 9.6 Total Bilirubin 0.2 AST 26 ALT 19 Alkaline Phosphatase 85 Total Protein 8.0 Albumin 4.7 Globulin 3.3 Lipase 52 Urine Color Urine Appearance Urine pH Ur Specific [place] Urine Protein Urine Glucose (UA) Urine Ketones Urine Blood Urine Nitrate Urine Bilirubin Urine Urobilinogen Ur Leukocyte Esterase Urine HCG, Qual Negative 08/08/20 08/09/20 08/09/20 19:23 05:02 05:02 WBC 7.7 RBC 4.09 L Hgb 10.9 L Hct 36.1 L MCV 88.3 MCH 26.7 L MCHC 30.2 RDW 13.4 Plt Count 261 MPV 10.0 Neut % (Auto) 66.7 Lymph % (Auto) 24.8 [place] % (Auto) 6.3 Eos % (Auto) 1.3 Baso % (Auto) 0.6 Neut # (Auto) 5.16 Lymph # (Auto) 1.9 [place] # (Auto) 0.5 Eos # (Auto) 0.1 Baso # (Auto) 0.1 Nucleated RBC % (auto) 0 Nucleated RBCs # 0.0 APTT 28.0 Sodium Potassium Chloride Carbon Dioxide Anion Gap BUN Creatinine GFR Calculation Glucose Calculated Osmolality Calcium Total Bilirubin AST ALT Alkaline Phosphatase Total Protein Albumin Globulin Lipase Urine Color Yellow Urine Appearance Clear Urine pH 6.5 Ur Specific [place] 1.005 Urine Protein Neg Urine Glucose (UA) Norm Urine Ketones Negative Urine Blood Neg Urine Nitrate Negative Urine Bilirubin Neg Urine Urobilinogen Norm Ur Leukocyte Esterase Negative Urine HCG, Qual 08/09/20 05:02 WBC RBC Hgb Hct MCV MCH MCHC RDW Plt Count MPV Neut % (Auto) Lymph % (Auto) [place] % (Auto) Eos % (Auto) Baso % (Auto) Neut # (Auto) Lymph # (Auto) [place] # (Auto) Eos # (Auto) Baso # (Auto) Nucleated RBC % (auto) Nucleated RBCs # APTT Sodium 136 Potassium 3.8 Chloride 102 Carbon Dioxide 26 Anion Gap 11.8 BUN 10 Creatinine 0.9 GFR Calculation 71.7 L Glucose 95 Calculated Osmolality 281 L Calcium 8.7 Total Bilirubin AST ALT Alkaline Phosphatase Total Protein Albumin Globulin Lipase Urine Color Urine Appearance Urine pH Ur Specific [place] Urine Protein Urine Glucose (UA) Urine Ketones Urine Blood Urine Nitrate Urine Bilirubin Urine Urobilinogen Ur Leukocyte Esterase Urine HCG, Qual Cardiac Studies: No Data to Display
--- NOTE | 2020-08-09 10:02 | PM.OP ---
Operative Report Date of procedure: August 09, 2020 Pre-op Diagnosis: acute appendicitis Post-op Diagnosis: Acute appendicitis Bilateral ovarian cyst Normal small bowel and colon Normal fallopian tubes Procedure Done: Laparoscopic appendectomy Specimens removed/disposition: Appendix Surgeon: Axel Cardoza Anesthesia: General Condition: stable Procedure: The patient was taken to the Operating Room and intubated under general anesthesia after antibiotic had been administered. Using a 15 blade, a 1-cm infraumbilical incision was made and using open Radha technique, the peritoneal cavity was entered. A 12mm port with balloon was placed and 14 mm of pneumoperitoneum was created and 10-mm 30 degree scope was introduced. Two separate 5mm ports were placed in the left and right lower quadrant under direct visualization. The appendix was noted in the right lower quadrant and appeared acutely inflamed.. Using [place] forceps, an opening was made in the mesoappendix near the base of the appendix. An Endo SAJAN stapler 45mm long 3.5mm blue load was introduced to divide the appendix at it's base. Using electrocautery, the mesoappendix including the appendicular artery was divided. There was no bleeding noted and the staple line appeared intact. The uterus, fallopian tubes appeared normal. Patient had bilateral ovarian cysts. The small bowel was then examined and there was no Meckel's diverticulum or other pathology noted. The right lower quadrant was irrigated with saline and an EndoCatch bag was introduced to remove the appendix. All three ports were removed under direct visualization and there was no bleeding noted on the port sites. 10 0.5% Marcaine was infiltrated at the port sites. The fascia at the umbilical port was closed using figure of eight 0-Vicryl sutures and subcutaneous tissue was approximated using 3-0 Vicryl and skin at all 3 port sites was closed using 4-0 Monocryl and Dermabond.
--- NOTE | 2020-08-09 10:35 | ANE.PACU2 ---
Inpatient post-anesthesia follow up: Airway intact: Yes Vital signs: Temperature 97.9 F Pulse Rate [Right Radial] 83 Pulse Rate 79 Respiratory Rate 18 Blood Pressure [Le ft Arm] 147/87 Blood Pressure 124/80 Pulse Oximetry 98 Oxygen Delivery Me thod Room Air Oxygen Flow Rate 6 Fraction of Inspir ed Oxygen Hydration adequate: Yes Nausea and vomiting: No Pain level: 2 Mental status: Baseline
[2020-08-09] MEDS: HYDROcodone-acetaminophen 5-325 mg Tablet 1 TAB PO (10:47)
--- NOTE | 2020-08-09 16:01 | P.DS_ITS ---
Discharge Providers Date of Admission: 08/08/20 20:06 Date of Discharge: August 09, 2020 Attending Provider at Admission: Axel Cardoza MD Attending Provider at Discharge: Axel Cardoza MD Primary Care Provider: LENA Patel Diagnoses at Discharge Discharge Diagnosis (1) Acute appendicitis: Status: Acute Qualifiers: Acute appendicitis type: unspecified acute appendicitis type Qualified Code(s): K35.80 - Unspecified acute appendicitis Reason for Visit Reason for Visit: blood in stool Hospital Course Discharge Summary: This is a 34-year-old female who presented to the ER yesterday with lower abdominal pain and bleeding per rectum. Patient had a CT abdomen pelvis which showed early acute appendicitis. Patient was admitted to the hospital for IV antibiotics and underwent laparoscopic appendectomy today. The procedure was uneventful. At time of discharge she was ambulating, vital signs are stable and she is tolerating a clear liquid diet Physical Exam Narrative: EXAM NARRATIVE: Abdomen: Soft, Discharge Data Data Completed and Pending: Completed Studies During Hospitalization Category Date Time Status CT abdomen pelvis w con* [id number] Stat Cat Scan 08/08/20 18:49 Completed Pending at discharge Category Date Time Status ES surgery / GI i mages Routine Exams 08/09/20 07:41 Taken Pathology: Surgic al [PTH] Routine Pth 08/09/20 10:22 Ordered Labs from last 24 hours 08/09/20 08/09/20 08/09/20 05:02 05:02 05:02 WBC 7.7 RBC 4.09 L Hgb 10.9 L Hct 36.1 L MCV 88.3 MCH 26.7 L MCHC 30.2 RDW 13.4 Plt Count 261 MPV 10.0 Neut % (Auto) 66.7 Lymph % (Auto) 24.8 [place] % (Auto) 6.3 Eos % (Auto) 1.3 Baso % (Auto) 0.6 Neut # (Auto) 5.16 Lymph # (Auto) 1.9 [place] # (Auto) 0.5 Eos # (Auto) 0.1 Baso # (Auto) 0.1 Nucleated RBC % (a uto) 0 Nucleated RBCs # 0.0 APTT 28.0 Sodium 136 Potassium 3.8 Chloride 102 Carbon Dioxide 26 Anion Gap 11.8 BUN 10 Creatinine 0.9 GFR Calculation 71.7 L Glucose 95 Calculated Osmolal ity 281 L Calcium 8.7 Total Bilirubin AST ALT Alkaline Phosphata se Total Protein Albumin Globulin Lipase Urine Color Urine Appearance Urine pH Ur Specific Gravit y Urine Protein Urine Glucose (UA) Urine Ketones Urine Blood Urine Nitrate Urine Bilirubin Urine Urobilinogen Ur Leukocyte Aaliyah ase Urine HCG, Qual 08/08/20 08/08/20 08/08/20 19:23 18:35 18:35 WBC 9.6 RBC 4.55 Hgb 12.3 Hct 39.3 MCV 86.4 MCH 27.0 L MCHC 31.3 RDW 13.5 Plt Count 332 MPV 9.9 Neut % (Auto) 70.5 Lymph % (Auto) 21.6 [place] % (Auto) 6.7 Eos % (Auto) 0.5 Baso % (Auto) 0.5 Neut # (Auto) 6.78 Lymph # (Auto) 2.1 [place] # (Auto) 0.7 Eos # (Auto) 0.1 Baso # (Auto) 0.1 Nucleated RBC % (a uto) 0 Nucleated RBCs # 0.0 APTT Sodium 135 L Potassium 4.0 Chloride 99 Carbon Dioxide 26 Anion Gap 14.0 BUN 11 Creatinine 0.8 GFR Calculation 82.1 L Glucose 106 Calculated Osmolal ity 280 L Calcium 9.6 Total Bilirubin 0.2 AST 26 ALT 19 Alkaline Phosphata se 85 Total Protein 8.0 Albumin 4.7 Globulin 3.3 Lipase 52 Urine Color Yellow Urine Appearance Clear Urine pH 6.5 Ur Specific Gravit y 1.005 Urine Protein Neg Urine Glucose (UA) Norm Urine Ketones Negative Urine Blood Neg Urine Nitrate Negative Urine Bilirubin Neg Urine Urobilinogen Norm Ur Leukocyte Aaliyah ase Negative Urine HCG, Qual 08/08/20 16:15 WBC RBC Hgb Hct MCV MCH MCHC RDW Plt Count MPV Neut % (Auto) Lymph % (Auto) [place] % (Auto) Eos % (Auto) Baso % (Auto) Neut # (Auto) Lymph # (Auto) [place] # (Auto) Eos # (Auto) Baso # (Auto) Nucleated RBC % (a uto) Nucleated RBCs # APTT Sodium Potassium Chloride Carbon Dioxide Anion Gap BUN Creatinine GFR Calculation Glucose Calculated Osmolal ity Calcium Total Bilirubin AST ALT Alkaline Phosphata se Total Protein Albumin Globulin Lipase Urine Color Urine Appearance Urine pH Ur Specific Gravit y Urine Protein Urine Glucose (UA) Urine Ketones Urine Blood Urine Nitrate Urine Bilirubin Urine Urobilinogen Ur Leukocyte Aaliyah ase Urine HCG, Qual Negative Vitals: Last Vital Signs Temp 97.9 F 08/09/20 13:45 Pulse 79 08/09/20 13:45 Resp 18 08/09/20 13:45 BP 124/80 08/09/20 13:45 Pulse Ox 98 08/09/20 13:45 Discharge Plan Discharge Patient Disposition: Home Condition: Stable Prescriptions: New hydrocodone-acetaminophen [[place]] 5-325 mg tablet 1 tab PO Q6H 7 Days Qty: 20 RF: 0 ondansetron HCl [Zofran] 4 mg tablet 4 mg PO Q6H PRN (Reason: nausea and vomiting) Qty: 20 RF: 0 docusate sodium [Colace] 100 mg capsule 100 mg PO BID Qty: 30 RF: 0 Continued gabapentin 300 mg capsule See Rx Instructions PO TID Qty: 90 RF: 3 hydroxychloroquine 200 mg tablet 200 mg PO BID Qty: 60 RF: 3 propranolol 20 mg tablet 20 mg PO BID Qty: 60 RF: 5 trazodone 50 mg tablet See Rx Instructions .ROUTE .COMPLEX Qty: 30 RF: 0 sertraline 100 mg tablet See Rx Instructions .ROUTE .COMPLEX Qty: 90 RF: 0 meloxicam 7.5 mg tablet 7.5 mg PO DAILY RF: 0 montelukast 10 mg tablet 10 mg PO DAILY RF: 0 hydroxyzine HCl 25 mg tablet 25 mg PO BID PRN (Reason: Itching) RF: 0 metoprolol tartrate 25 mg tablet 25 mg PO BID RF: 0 Dexilant 60 mg capsule,biphase delayed releas 60 mg PO DAILY RF: 0 Discharge Orders: Discharge Order (Routine); Ordered 08/09/20 Ordered By: Axel Cardoza Referrals: Chidi Brooks, [facility] [Primary Care Provider] - 4-7 days (Please follow up with your primary care Dr. Chidi PAREDES in 4-7 days. Call her office on Monday to schedule this appointment.) Discharge Diet: Advance as tolerated Discharge Activity: Resume usual activity Patient Instructions: Hydrocodone/Acetaminophen (By mouth), Laxative, Stool Softeners (By mouth), Ondansetron (By mouth), Appendicitis (DC), Laparoscopic Appendectomy (DC) Activity Restrictions/Additional Instructions: 1. Up and walking as tolerated. 2. Ok to shower in 48 hours after surgery. 3. Remove Dermabond dressing in 7-10 days. 4. Do not lift more than 10 pounds. 5. Do not operate heavy machinery or drive while using pain medications. 6. Advised to return to ER or contact my office if there are any signs of infection like, increasing pain, fevers, chills, redness or drainage of pus. 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
== END 2020-08-09 13:46 | disposition home or self-care (01) ==
LOC: ER 20:05 → MEDSURG 20:32
PROVIDERS: Nurse Practitioner Family; Admitting Provider Surgery; Emergency Provider Emergency Medicine; PCP Registered Nurse; Visit Provider Surgery
PROC: (CPT 44950; principal; 2020-08-09 08:30)
DX: K35.80 Unspecified acute appendicitis (principal); I10 Essential (primary) hypertension
CPT/HCPCS: 44970; 12345; 36415; 74177; 80048; 80053; 81003; 81025; 83690; 85025; 85730; 88304; 96361; 96365; 96375; 99283; 99285; G0378; J0131; J2250; J2270; J2405; J2543; J2704; J3010; J3490; J7030; Q9967

== ENCOUNTER → 2020-08-19 10:48 | Outpatient (BNVA) | payer MEDICAID, SELFPAY | PROVIDERS: PCP Registered Nurse; Visit Provider Nurse Practitioner Family | DX: R10.9 Unspecified abdominal pain (principal) | CPT/HCPCS: 82270 ==

== ENCOUNTER → 2020-09-01 12:30 | Outpatient (BNVA) | payer MEDICAID, SELFPAY | PROVIDERS: PCP Registered Nurse; Visit Provider Internal Medicine Rheumatology | DX: M79.7 Fibromyalgia (principal); R76.8 Other specified abnormal immunological findings in serum; Z90.49 Acquired absence of other specified parts of digestive tract; G56.03 Carpal tunnel syndrome, bilateral upper limbs; M54.9 Dorsalgia, unspecified | CPT/HCPCS: 99214 ==

== ENCOUNTER 2020-09-03 13:06 | Inpatient (IN) | payer MEDICAID, SELFPAY ==
[2020-09-03] VITALS (7 sets, daily range): BP systolic 108–173; BP diastolic 70–110; PULSE 87–99; RESP 16–20; TEMP 36.1–36.8; O2SAT 97–100; BMI 30.9
--- NOTE | 2020-09-03 13:24 | ED_ITS ---
HPI - Psych General: Chief Complaint: Psychiatric Symptoms Stated Complaint: BACK PAIN, OTHER SYMPTOMS WOULD NOT DISCUSS Time Seen by Provider: 09/03/20 13:20 Source: patient Mode of arrival: ambulatory Limitations: no limitations History of Present Illness: HPI Narrative: 35-year-old female who has a history of chronic back pain over the last 2 years. She states she seen [facility] doctors and has not been able to get her pain under control. She states she has now been having increased depression and suicidal thoughts due to her chronic pain. She denies any specific plan but has had thoughts of killing herself. Patient states her back pain currently is an 8 out of 10 like it always is no recent injuries. Associated symptoms: Reports depression Review of Systems Const: Denies: fever(s), chills, body aches or change in appetite Eyes: Denies: blurry vision or eye discomfort ENMT: Denies: throat pain or dental pain Card: Denies: chest pain Resp: Denies: dyspnea GI: Denies: abdominal pain, nausea, vomiting or diarrhea : Denies: dysuria Musc: Reports: back pain Skin/Breast: Denies: rash Neuro: Denies: headache(s) Psych: Reports: depression Kartik/Lymph: Denies: easy bruising All/Imm: Denies: urticaria PFSH ED PFSH: Medical History Depression History of acute cholecystitis Hypertension Mid back pain Surgical History History of section x2 S/P laparoscopic appendectomy (08/09/20) Family History Father Suicide Other CAD (coronary artery disease) Diabetes Family history of premature coronary artery disease Hypertension Rheumatoid arthritis Stroke Denies family history of Lupus Lung disease Cancer Social History Smoking and tobacco status: never smoked Alcohol intake: never History of recent travel: Yes (travels from [facility]) Female Reproductive History: Date of last menstrual period: 08/01/20 Physical Exam Const: COMMON NORMALS: no acute distress, patient oriented x3 and healthy appearing HENMT: COMMON NORMALS: normocephalic and atraumatic HEAD & SCALP: normocephalic and atraumatic Eye: COMMON NORMALS: Equal, round and reactive pupils present and EOMs intact bilaterally PUPIL: Yes Equal, round and reactive pupils present Neck/C-Spine: COMMON NORMALS: full ROM and supple Chest: COMMONS NORMALS: normal inspection of the chest and normal palpation of entire chest wall Resp: COMMON NORMALS: normal respiratory effort, No retractions, No use of accessory muscles and clear to auscultation bilaterally AUSCULTATION: clear to auscultation bilaterally Cardio: COMMON NORMALS: regular rate, regular rhythm and No murmurs present (Cardio) RATE: regular rate RHYTHM: regular rhythm GI: COMMON NORMALS: Normal to inspection, nondistended, normoactive bowel sounds present, Soft to palpation, non-tender and no masses PALPATION: Yes Soft to palpation Extremity: COMMON NORMALS: normal to inspection and full ROM Neuro: COMMON NORMALS: patient oriented x3, moves all extremities and no focal motor deficits Psych: COMMON NORMALS: mental status grossly normal, Normal thought process present and cooperative MOOD & AFFECT: Yes depressed mood THOUGHT PROCESS: Normal thought process present THOUGHT CONTENT: Yes Suicidality present Skin: COMMON NORMALS: no rashes or lesions noted and no wounds GENERAL SKIN EXAM: no rashes or lesions noted MDM - Psych MDM Narrative: Medical decision making narrative: Ree presents for suicidal ideation due to her chronic pain. Patient is medically cleared I spoke to Dr. Littlejohn and will admit to the psychiatric unit. Patient is stable for admissi on. Lab Data: Labs: Lab Results 09/03/20 09/03/20 09/03/20 Range/Units 13:31 13:31 13:38 WBC 9.0 (4.0-10.0) 10^3/ uL RBC 4.54 (4.1-5.3) 10^6/u L Hgb 12.1 (11.5-15.3) g/dL Hct 38.5 (37.0-47.0) % MCV 84.8 (81-99) fL MCH 26.7 L (28.0-34.0) pg MCHC 31.4 (30.0-36.0) g/dL RDW 13.2 (12.1-15.1) % Plt Count 326 (130-400) 10^3/c mm MPV 9.7 (7.4-10.4) fL Neut % (Auto) 78.4 % Lymph % (Auto) 14.4 % [place] % (Auto) 6.2 % Eos % (Auto) 0.2 % Baso % (Auto) 0.6 % Neut # (Auto) 7.04 (1.8-7.7) 10^3/u L Lymph # (Auto) 1.3 (0.8-4.8) 10^3/u L [place] # (Auto) 0.6 (0.2-0.9) 10^3/u L Eos # (Auto) 0.0 (0.0-0.8) 10^3/u L Baso # (Auto) 0.1 (0.0-0.1) 10^3/u L Nucleated RBC % (a uto) 0 % Nucleated RBCs # 0.0 /100WBC Sodium (136-145) mmol/L Potassium (3.5-5.1) mmol/L Chloride (98-107) mmol/L Carbon Dioxide (22-29) mmol/L Anion Gap (5-19) BUN (6-20) mg/dL Creatinine (0.5-0.9) mg/dL GFR Calculation (90-130) mL/min Glucose (65-115) mg/dL Calculated Osmolal ity (285-295) mOsm/k g Calcium (8.5-10.5) mg/dL Total Bilirubin (0.15-1.2) mg/dL AST (0-32) U/L ALT (0-33) U/L Alkaline Phosphata se (35-105) IU/L Total Protein (6.6-8.7) g/dL Albumin (3.5-5.2) g/dL Globulin (1.3-4.6) g/dL HCG, Qual Negative (Negative) Salicylates (3-10) mg/dL Urine Opiates Scre en Negative (Negative) ng/mL Acetaminophen (10-30) ug/mL Ur Barbiturates Sc reen Negative (Negative) ng/mL Ur Phencyclidine S crn Negative (Negative) ng/mL Ur Amphetamines Sc reen Negative (Negative) ng/mL U Benzodiazepines Scrn Negative (Negative) ng/mL Urine Cocaine Scre en Negative (Negative) ng/mL U Marijuana (THC) Screen Negative (Negative) ng/mL Ethyl Alcohol (0-10) mg/dL 09/03/20 Range/Units 13:38 WBC (4.0-10.0) 10^3/ uL RBC (4.1-5.3) 10^6/u L Hgb (11.5-15.3) g/dL Hct (37.0-47.0) % MCV (81-99) fL MCH (28.0-34.0) pg MCHC (30.0-36.0) g/dL RDW (12.1-15.1) % Plt Count (130-400) 10^3/c mm MPV (7.4-10.4) fL Neut % (Auto) % Lymph % (Auto) % [place] % (Auto) % Eos % (Auto) % Baso % (Auto) % Neut # (Auto) (1.8-7.7) 10^3/u L Lymph # (Auto) (0.8-4.8) 10^3/u L [place] # (Auto) (0.2-0.9) 10^3/u L Eos # (Auto) (0.0-0.8) 10^3/u L Baso # (Auto) (0.0-0.1) 10^3/u L Nucleated RBC % (a uto) % Nucleated RBCs # /100WBC Sodium 137 (136-145) mmol/L Potassium 3.7 (3.5-5.1) mmol/L Chloride 100 (98-107) mmol/L Carbon Dioxide 25 (22-29) mmol/L Anion Gap 15.7 (5-19) BUN 13 (6-20) mg/dL Creatinine 0.8 (0.5-0.9) mg/dL GFR Calculation 81.6 L (90-130) mL/min Glucose 118 H (65-115) mg/dL Calculated Osmolal ity 285 (285-295) mOsm/k g Calcium 9.6 (8.5-10.5) mg/dL Total Bilirubin 0.2 (0.15-1.2) mg/dL AST 20 (0-32) U/L ALT 14 (0-33) U/L Alkaline Phosphata se 89 (35-105) IU/L Total Protein 7.8 (6.6-8.7) g/dL Albumin 4.5 (3.5-5.2) g/dL Globulin 3.3 (1.3-4.6) g/dL HCG, Qual (Negative) Salicylates 1.4 L (3-10) mg/dL Urine Opiates Scre en (Negative) ng/mL Acetaminophen < 5.0 L (10-30) ug/mL Ur Barbiturates Sc reen (Negative) ng/mL Ur Phencyclidine S crn (Negative) ng/mL Ur Amphetamines Sc reen (Negative) ng/mL U Benzodiazepines Scrn (Negative) ng/mL Urine Cocaine Scre en (Negative) ng/mL U Marijuana (THC) Screen (Negative) ng/mL Ethyl Alcohol < 10 (0-10) mg/dL Discharge Plan Discharge Prescriptions: No Action cholecalciferol (vitamin D3) [Vitamin D3] 50 mcg (2,000 unit) capsule 50 mcg PO DAILY RF: 0 meloxicam 15 mg tablet 15 mg PO DAILY Qty: 30 RF: 0 trazodone 50 mg tablet See Rx Instructions .ROUTE .COMPLEX Qty: 30 RF: 0 metoprolol tartrate 25 mg tablet 25 mg PO BID Qty: 180 RF: 0 montelukast 10 mg tablet 10 mg PO DAILY RF: 0 Dexilant 60 mg capsule,biphase delayed releas 60 mg PO DAILY RF: 0 docusate sodium [Colace] 100 mg capsule 100 mg PO BID Qty: 30 RF: 0 sertraline 100 mg tablet 100 mg PO DAILY RF: 0 Coding Level of Care Code 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
[2020-09-03 13:46] LABS: Basophils # 0.1 10^3/uL (0.0-0.1); Basophils % 0.6 %; Eosinophils % 0.2 %; Hematocrit 38.5 % (37.0-47.0); Hemoglobin 12.1 g/dL (11.5-15.3); Lymphocytes # 1.3 10^3/uL (0.8-4.8); Lymphocytes % 14.4 %; Mean Corpuscular HGB Conc 31.4 g/dL (30.0-36.0); Mean Corpuscular Hemoglobin 26.7 pg (28.0-34.0); Mean Corpuscular Volume 84.8 fL (81-99); Mean Platelet Volume 9.7 fL (7.4-10.4); Monocytes # 0.6 10^3/uL (0.2-0.9); Monocytes % 6.2 %; Neutrophils # 7.04 10^3/uL (1.8-7.7); Neutrophils % 78.4 %; Nucleated Red Blood Cells % 0 %; Platelet Count 326 10^3/cmm (130-400); Red Blood Count 4.54 10^6/uL (4.1-5.3); Red Cell Distribution Width 13.2 % (12.1-15.1)
[2020-09-03 13:47] LABS: HCG Qualitative Urine. Negative (Negative)
[2020-09-03 13:53] LABS: Amphetamines Screen Urine Negative (Negative); Barbiturates Screen Urine Negative (Negative); Benzodiazepines Screen Urine Negative (Negative); Cocaine Screen Urine Negative (Negative); Opiate Screen Urine Negative (Negative); PCP Screen Urine Negative (Negative); THC Screen Urine Negative (Negative)
[2020-09-03 14:04] LABS: Acetaminophen < 5.0 ug/mL (10-30); Alanine Aminotransferase 14 U/L (0-33); Albumin Level 4.5 g/dL (3.5-5.2); Alcohol Level < 10 mg/dL (0-10); Alkaline Phosphatase 89 IU/L (35-105); Anion Gap 15.7 (5-19); Aspartate Amino Transferase 20 U/L (0-32); Blood Urea Nitrogen 13 mg/dL (6-20); Calcium 9.6 mg/dL (8.5-10.5); Carbon Dioxide 25 mmol/L (22-29); Chloride 100 mmol/L (98-107); Globulin 3.3 g/dL (1.3-4.6); Glomerular Filtration Rate 81.6 mL/min (90-130); Glucose 118 mg/dL (65-115); Osmolality Calculated 285 mOsm/kg (285-295); Potassium 3.7 mmol/L (3.5-5.1); Salicylate 1.4 mg/dL (3-10); Sodium 137 mmol/L (136-145); Total Bilirubin 0.2 mg/dL (0.15-1.2); Total Protein 7.8 g/dL (6.6-8.7)
[2020-09-03] MEDS: HYDROcodone-acetaminophen 5-325 mg Tablet 1 TAB PO (14:28)
[2020-09-03] MEDS: LORazepam 2 mg/mL INJ 1 mL IM (14:29)
[2020-09-03] MEDS: acetaminophen 325 mg Tablet 650 MG PO (18:17)
[2020-09-03] MEDS: hyDROXYzine 25 mg Capsule 50 MG PO (20:49)
[2020-09-03] MEDS: trazodone 50 mg Tablet PO (20:52)
[2020-09-03] MEDS: metoprolol tartrate 25 mg Tablet PO (20:52)
--- NOTE | 2020-09-03 20:59 | PC.NURSE ---
BP 150/110 contacted physician to restart her blood pressure medication. He ordered 25mg PO Metoprolol tartrate once one and 25mg PO Metoprolol tartrate bid. Pt denies SI/HI. Denies AH/VH Pt. reports severe anxiety and requested medication. Med nurse notified.
[2020-09-03] MEDS: meloxicam 7.5 mg tablet 15 MG PO (21:04)
[2020-09-04 06:00] VITALS: BP 101/61; PULSE 71; RESP 16; TEMP 36.6; O2SAT 98
[2020-09-04] MEDS: acetaminophen 325 mg Tablet 650 MG PO ×3 (06:47→23:31)
[2020-09-04] MEDS: meloxicam 7.5 mg tablet 15 MG PO ×2 (08:46→17:18)
[2020-09-04] MEDS: pantoprazole DR 40 mg Tablet PO (08:46)
[2020-09-04] MEDS: docusate sodium 100 mg Capsule PO ×2 (08:46→17:18)
[2020-09-04] MEDS: sertraline 100 mg Tablet PO (08:46)
[2020-09-04] MEDS: montelukast sodium 10 mg Tablet PO (08:46)
[2020-09-04] MEDS: cholecalciferol (vitamin D3) 1,000 unit Tablet 2000 UNIT PO (08:47)
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
[2020-09-04] MEDS: ARIPiprazole 10 mg Tablet PO (12:22)
[2020-09-04 14:00] VITALS: BP 125/85; PULSE 80; RESP 20; TEMP 36.8; O2SAT 99
[2020-09-04 16:24] LABS: Glucose Point of Care 191 mg/dL (70-110)
[2020-09-04] MEDS: ondansetron 4 MG Tablet PO (19:24)
[2020-09-04 22:00] VITALS: BP 117/74; PULSE 72; RESP 17; TEMP 36.7; O2SAT 98
[2020-09-04] MEDS: hyDROXYzine 25 mg Capsule 50 MG PO (22:01)
[2020-09-04] MEDS: trazodone 50 mg Tablet PO (22:01)
[2020-09-05 06:00] VITALS: BP 106/71; PULSE 80; RESP 15; TEMP 36.7; O2SAT 96
[2020-09-05] MEDS: acetaminophen 325 mg Tablet 650 MG PO (06:58)
[2020-09-05] MEDS: montelukast sodium 10 mg Tablet PO (08:03)
[2020-09-05] MEDS: cholecalciferol (vitamin D3) 1,000 unit Tablet 2000 UNIT PO (08:03)
[2020-09-05] MEDS: sertraline 100 mg Tablet PO (08:04)
[2020-09-05] MEDS: meloxicam 7.5 mg tablet 15 MG PO ×2 (08:04→20:40)
[2020-09-05] MEDS: ARIPiprazole 10 mg Tablet PO (08:04)
[2020-09-05] MEDS: pantoprazole DR 40 mg Tablet PO (08:04)
[2020-09-05] MEDS: docusate sodium 100 mg Capsule PO ×2 (08:04→20:40)
[2020-09-05] MEDS: ondansetron 4 MG Tablet PO (11:13)
--- NOTE | 2020-09-05 11:14 | PC.NURSE ---
PRN ZOFRAN 4 MG GIVEN PO PER PT C/O STATED NAUSEA. WILL CONT TO MONITOR
[2020-09-05 14:00] VITALS: BP 135/88; PULSE 92; RESP 20; TEMP 36.2; O2SAT 98
--- NOTE | 2020-09-05 14:06 | P.PN_ITS ---
Subjective NPU Subjective: Interval history: Ree presents today reporting that she misses her children and would like to go home soon. She continues to lack insight into the circumstances of her being here. She continues to be very somatically preoccupied endorsing different pain syndromes as her suggestion as to why she might be a. The risks, benefits and alternatives of as needed tramadol while she works through the pain. She reports that the Abilify may have made her nauseous but she continues to take the medication. She reports she is eating okay and would sleep a little better if she were in so much pain. Mental Status Exam MSE Comments: This is a obese white female with hospital scrubs on with limited grooming and eye contact. No abnormal movements except for psychomotor retardation. Cooperative with exam in mild distress. Speech was more spontaneous but decreased rate and volume. Mood described as still not sure, affect confused. Thought process disorganized thought content: Patient denies any suicidal or homicidal ideations, there were no delusions noted, but paranoia was endorsed, she denied any auditory or visual hallucinations. Attention and concentration were impaired and memory was unreliable but none were formally tested. She is alert and oriented times person and place. Insight and judgment are impaired impulse control is limited. Vitals/I&O/Wt Last Vital Signs Temp 98.0 F 09/05/20 06:00 Pulse 80 09/05/20 06:00 Resp 15 09/05/20 06:00 BP 106/71 09/05/20 06:00 Pulse Ox 96 09/05/20 06:00 Weight last 48 hrs Weight 104.383 kg Data NPU : 09/03/20 13:38 09/03/20 13:38 A&P Additional A&P Information (1) Depression: (2) Altered mental status: (3) Psychosis: Additional A&P Information This is a 35-year-old Y female with a long history of trauma with self unclear but documented history of mental health follow-up with depression and anxiety who presents with confusion, possible psychosis versus some medical condition causing an acute psychotic/confused state who presents open to a trial of an antipsychotic. 1. Continue current medication. As needed tramadol added for pain to see if we can get her less focused on her somatic thoughts. 2. Continue every 15 minute checks for safety. 3. Encourage individual, group and milieu therapy. 4. Continue to gather collateral information to determine whether some medical condition i.e. lupus might be driving the mental disparities were seeing. Involuntary Hold Information 96 Hour Hold: 96 Hour Involuntary Admission: No Attestations NPU Medical Necessity Statement*: Inpatient hospitalization is medically necessary and the clinically appropriate intervention at this time. We will monitor medications and make changes as indicated. Likely length of stay 3-5 days. Coding Level of Care Code Acute Home Furnishings Sales Representative for Nicolle Boles
[2020-09-05] MEDS: TRAMadol 50 mg Tablet PO (17:49)
[2020-09-05] MEDS: hyDROXYzine 25 mg Capsule 50 MG PO (20:39)
[2020-09-05] MEDS: trazodone 50 mg Tablet PO (20:40)
[2020-09-05 21:13] VITALS: BP 148/100; PULSE 92; RESP 17; TEMP 36.4; O2SAT 95
[2020-09-06 06:00] VITALS: BP 102/67; PULSE 75; RESP 18; TEMP 36.5; O2SAT 97
[2020-09-06] MEDS: TRAMadol 50 mg Tablet PO ×3 (06:30→20:58)
[2020-09-06] MEDS: montelukast sodium 10 mg Tablet PO (08:18)
[2020-09-06] MEDS: docusate sodium 100 mg Capsule PO ×2 (08:18→20:58)
[2020-09-06] MEDS: pantoprazole DR 40 mg Tablet PO (08:18)
[2020-09-06] MEDS: ARIPiprazole 10 mg Tablet PO (08:18)
[2020-09-06] MEDS: meloxicam 7.5 mg tablet 15 MG PO ×2 (08:19→20:58)
[2020-09-06] MEDS: sertraline 100 mg Tablet PO (08:19)
[2020-09-06] MEDS: cholecalciferol (vitamin D3) 1,000 unit Tablet 2000 UNIT PO (08:19)
--- NOTE | 2020-09-06 13:30 | P.PN_ITS ---
Subjective NPU Subjective: Interval history: Ree presents today reporting that she is feeling a bit better. She endorses that she had Zofran to help with her nausea and that that getting better. She reports that she feels the Abilify is helping and can discuss them goals are to start. She endorses that she has children at home with her and that she would like to get things back on track now that she is feeling better and less confused. We agreed to work with the treatment team tomorrow to see what options exist for outpatient treatment. She continued to be somatically preoccupied but less so. Mental Status Exam MSE Comments: This is a obese white female with hospital scrubs on with limited grooming and eye contact. No abnormal movements except for decreasing psychomotor retardation. Cooperative with exam in mild distress. Speech was more spontaneous but still decreased rate and volume. Mood described as a little better, affect less confused. Thought process disorganized thought content: Patient denies any suicidal or homicidal ideations, there were no delusions noted, but paranoia was endorsed, she denied any auditory or visual hallucinations. Attention and concentration were improving and memory was more reliable but none were formally tested. She is alert and oriented times person and place. Insight and judgment are impaired, but improving impulse control is limited. Vitals/I&O/Wt Last Vital Signs Temp 98.4 F 09/06/20 14:00 Pulse 66 09/06/20 14:00 Resp 18 09/06/20 14:00 BP 136/89 09/06/20 14:00 Pulse Ox 97 09/06/20 06:00 Weight last 48 hrs Weight 104.383 kg Data NPU : 09/03/20 13:38 09/03/20 13:38 A&P Additional A&P Information (1) Depression: (2) Altered mental status: (3) Psychosis: Additional A&P Information This is a 35-year-old Y female with a long history of trauma with self unclear but documented history of mental health follow-up with depression and anxiety who presents with confusion, possible psychosis versus some medical condition causing an acute psychotic/confused state who presents open to a trial of an antipsychotic. 1. Continue current medication. 2. Continue every 15 minute checks for safety. 3. Encourage individual, group and milieu therapy. 4. Continue to gather collateral information to determine whether some medical condition i.e. lupus might be driving the mental disparities were seeing. Involuntary Hold Information 96 Hour Hold: 96 Hour Involuntary Admission: No Attestations NPU Medical Necessity Statement*: Inpatient hospitalization is medically necessary and the clinically appropriate intervention at this time. We will monitor medications and make changes as indicated. Likely length of stay 2-4 days. Coding Level of Care Code Acute Ecommerce Merchandising Manager for Nicolle Boles
[2020-09-06 14:00] VITALS: BP 136/89; PULSE 66; RESP 18; TEMP 36.9
[2020-09-06 20:19] VITALS: BP 135/82; PULSE 97; RESP 17; TEMP 37.1; O2SAT 96
[2020-09-06] MEDS: hyDROXYzine 25 mg Capsule 50 MG PO (20:57)
[2020-09-06] MEDS: trazodone 50 mg Tablet PO (20:58)
[2020-09-07 06:00] VITALS: BP 109/69; PULSE 72; RESP 16; TEMP 36.6; O2SAT 98
[2020-09-07] MEDS: TRAMadol 50 mg Tablet PO ×2 (06:42→13:48)
[2020-09-07] MEDS: meloxicam 7.5 mg tablet 15 MG PO (08:10)
[2020-09-07] MEDS: pantoprazole DR 40 mg Tablet PO (08:11)
[2020-09-07] MEDS: docusate sodium 100 mg Capsule PO (08:11)
[2020-09-07] MEDS: cholecalciferol (vitamin D3) 1,000 unit Tablet 2000 UNIT PO (08:11)
[2020-09-07] MEDS: sertraline 100 mg Tablet PO (08:11)
[2020-09-07] MEDS: ARIPiprazole 10 mg Tablet PO (08:11)
[2020-09-07] MEDS: montelukast sodium 10 mg Tablet PO (08:11)
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
[2020-09-07 13:05] VITALS: BP 109/69; PULSE 72; RESP 16; TEMP 36.6; O2SAT 98
== END 2020-09-07 14:14 | disposition home or self-care (01) | DRG 885 ==
LOC: ER 13:41 → NP 14:40
PROVIDERS: Admitting Provider Psychiatry & Neurology Psychiatry; Emergency Provider Emergency Medicine; PCP Nurse Practitioner Family; Visit Provider Psychiatry & Neurology Psychiatry
DX: F23 Brief psychotic disorder (principal); F32.9 Major depressive disorder, single episode, unspecified; G89.29 Other chronic pain; M45.4 Ankylosing spondylitis of thoracic region; Z62.810 Personal history of physical and sexual abuse in childhood
CPT/HCPCS: 12345; 36415; 36416; 80053; 80306; 80307; 81025; 82962; 85025; 96372; 99284; J2060; Q0162

== ENCOUNTER → 2020-09-09 08:49 | Outpatient (BNVA) | payer MEDICAID, SELFPAY | PROVIDERS: PCP Nurse Practitioner Family; Visit Provider Nurse Practitioner Family | DX: R35.0 Frequency of micturition (principal); F32.9 Major depressive disorder, single episode, unspecified | CPT/HCPCS: 81000 ==

== ENCOUNTER → 2020-10-14 09:30 | Outpatient (BNVA) | payer MEDICAID, SELFPAY | PROVIDERS: PCP Nurse Practitioner Family; Referring Provider Nurse Practitioner Family; Visit Provider Anesthesiology Pain Medicine | DX: G89.29 Other chronic pain (principal); M54.16 Radiculopathy, lumbar region; M54.9 Dorsalgia, unspecified; Z79.891 Long term (current) use of opiate analgesic | CPT/HCPCS: 99205 ==

== ENCOUNTER 2020-10-26 13:27 | Outpatient (RCR) | payer MEDICAID, SELFPAY | END 2020-10-29 23:59 | disposition home or self-care (01) | LOC: SPT 13:27 | PROVIDERS: PCP Nurse Practitioner Family; Referring Provider Anesthesiology Pain Medicine; Visit Provider Anesthesiology Pain Medicine | DX: G89.29 Other chronic pain (principal); M54.5 Low back pain | CPT/HCPCS: 97161 ==

== ENCOUNTER → 2020-11-05 08:47 | Outpatient (BNVA) | payer BC, SELFPAY | PROVIDERS: PCP Nurse Practitioner Family; Visit Provider Psychiatry & Neurology Psychiatry | DX: F43.12 Post-traumatic stress disorder, chronic (principal); F33.2 Major depressive disorder, recurrent severe without psychotic features; F41.1 Generalized anxiety disorder | CPT/HCPCS: 99204 ==

== ENCOUNTER → 2020-11-18 09:19 | Outpatient (BNVA) | payer BC, MEDICAID, SELFPAY | PROVIDERS: PCP Nurse Practitioner Family; Visit Provider Anesthesiology Pain Medicine | DX: G89.29 Other chronic pain (principal); M54.16 Radiculopathy, lumbar region; M54.9 Dorsalgia, unspecified; R20.0 Anesthesia of skin; R20.2 Paresthesia of skin | CPT/HCPCS: 99213 ==

== ENCOUNTER → 2020-12-01 07:58 | Outpatient (BNVA) | payer BC, MEDICAID, SELFPAY | PROVIDERS: PCP Nurse Practitioner Family; Visit Provider Psychiatry & Neurology Psychiatry | DX: F41.1 Generalized anxiety disorder (principal); F33.2 Major depressive disorder, recurrent severe without psychotic features; F43.12 Post-traumatic stress disorder, chronic | CPT/HCPCS: 99214 ==

== ENCOUNTER → 2021-01-28 09:57 | Outpatient (BNVA) | payer BC, MEDICAID, SELFPAY | PROVIDERS: PCP Nurse Practitioner Family; Visit Provider Psychiatry & Neurology Psychiatry | DX: F41.1 Generalized anxiety disorder (principal); F33.2 Major depressive disorder, recurrent severe without psychotic features; F43.12 Post-traumatic stress disorder, chronic; G47.00 Insomnia, unspecified | CPT/HCPCS: 99214 ==

== ENCOUNTER → 2021-02-19 13:23 | Outpatient (BNVA) | payer BC, MEDICAID, SELFPAY | PROVIDERS: PCP Nurse Practitioner Family; Visit Provider Nurse Practitioner Family | DX: R32 Unspecified urinary incontinence (principal) | CPT/HCPCS: 81000 ==

== ENCOUNTER → 2021-02-22 08:21 | Outpatient (BNVA) | payer BC, MEDICAID, SELFPAY | PROVIDERS: PCP Nurse Practitioner Family; Visit Provider Nurse Practitioner Family | DX: R53.83 Other fatigue (principal); Z79.899 Other long term (current) drug therapy | CPT/HCPCS: 85025 ==

== ENCOUNTER → 2021-02-23 08:22 | Outpatient (BNVA) | payer BC, MEDICAID, SELFPAY | PROVIDERS: PCP Nurse Practitioner Family; Visit Provider Nurse Practitioner Family | DX: R53.83 Other fatigue (principal); M25.50 Pain in unspecified joint | CPT/HCPCS: 83540; 85025 ==

== ENCOUNTER → 2021-02-24 11:05 | Outpatient (BNVA) | payer BC, MEDICAID, SELFPAY | PROVIDERS: PCP Nurse Practitioner Family; Visit Provider Nurse Practitioner Family | DX: Z01.419 Encounter for gynecological examination (general) (routine) without abnormal findings (principal); Z12.4 Encounter for screening for malignant neoplasm of cervix | CPT/HCPCS: 88175 ==

== ENCOUNTER → 2021-02-25 08:32 | Outpatient (BNVA) | payer BC, MEDICAID, SELFPAY | PROVIDERS: PCP Nurse Practitioner Family; Visit Provider Nurse Practitioner Family | DX: E61.1 Iron deficiency (principal) | CPT/HCPCS: 82746; 83550; 85025 ==

== ENCOUNTER → 2021-03-10 13:50 | Outpatient (BNVA) | payer BC, MEDICAID, SELFPAY | PROVIDERS: PCP Nurse Practitioner Family; Visit Provider Internal Medicine Rheumatology | DX: M79.7 Fibromyalgia (principal); G56.03 Carpal tunnel syndrome, bilateral upper limbs; M54.9 Dorsalgia, unspecified; G89.29 Other chronic pain | CPT/HCPCS: 99214 ==

== ENCOUNTER → 2021-03-24 08:17 | Outpatient (BNVA) | payer BC, MEDICAID, SELFPAY | PROVIDERS: PCP Nurse Practitioner Family; Visit Provider Specialist | DX: G25.0 Essential tremor (principal); M79.7 Fibromyalgia; F33.2 Major depressive disorder, recurrent severe without psychotic features | CPT/HCPCS: 99214 ==

== ENCOUNTER → 2021-04-13 09:55 | Outpatient (BNVA) | payer BC, SELFPAY | PROVIDERS: PCP Nurse Practitioner Family; Visit Provider Psychiatry & Neurology Psychiatry | DX: F41.1 Generalized anxiety disorder (principal); F33.2 Major depressive disorder, recurrent severe without psychotic features; F43.12 Post-traumatic stress disorder, chronic | CPT/HCPCS: 99213 ==

== ENCOUNTER 2021-05-26 14:39 | Outpatient (CLI) | payer BC, MEDICAID, SELFPAY ==
--- NOTE | 2021-05-26 15:00 | US_ITS ---
WS: [id number] ULTRASOUND RENAL TECHNIQUE: Ultrasound examination of both kidneys. CLINICAL INFORMATION: N28.1 - Cyst of kidney, acquired COMPARISON: CT August 08, 2020 FINDINGS: RIGHT: Right kidney is normal in size and appearance. Echogenicity: Normal. Cortical thickness: 1.2 cm; Normal. Hydronephrosis: None. Perinephric fluid: None. Right kidney measures: 11.5 cm x 5.3 cm x 5.4 cm. LEFT: Left kidney is normal in size and appearance. Echogenicity: Normal. Cortical thickness: 1.2 cm; Normal. Hydronephrosis: None. Perinephric fluid: None. Left kidney measures: 11.7 cm x 5.2 cm x 4.8 cm. Normal visualized aorta. US/US renal BI* [id number] IMPRESSION: 1. Normal renal ultrasound 2. Renal cysts seen on the prior CT not visualized on this study.
== END 2021-05-26 14:40 | disposition home or self-care (01) ==
LOC: RAD 14:42
PROVIDERS: PCP Nurse Practitioner Family; Visit Provider Nurse Practitioner Family
DX: N28.1 Cyst of kidney, acquired (principal)
CPT/HCPCS: 76770

== ENCOUNTER → 2021-06-03 08:57 | Outpatient (BNVA) | payer BC, MEDICAID, SELFPAY | PROVIDERS: PCP Nurse Practitioner Family; Visit Provider Specialist | DX: M79.7 Fibromyalgia (principal); F33.2 Major depressive disorder, recurrent severe without psychotic features; G25.0 Essential tremor | CPT/HCPCS: 99213; 99214 ==

== ENCOUNTER → 2021-07-09 11:34 | Outpatient (BNVA) | payer BC, MEDICAID, SELFPAY | PROVIDERS: PCP Nurse Practitioner Family; Visit Provider Psychiatry & Neurology Psychiatry | DX: F41.1 Generalized anxiety disorder (principal); F33.2 Major depressive disorder, recurrent severe without psychotic features; F43.12 Post-traumatic stress disorder, chronic; H65.90 Unspecified nonsuppurative otitis media, unspecified ear; G47.00 Insomnia, unspecified | CPT/HCPCS: 99213 ==

== ENCOUNTER → 2021-10-01 10:08 | Outpatient (BNVA) | payer BC, MEDICAID, SELFPAY | PROVIDERS: PCP Nurse Practitioner Family; Visit Provider Psychiatry & Neurology Psychiatry | DX: F41.1 Generalized anxiety disorder (principal); F33.2 Major depressive disorder, recurrent severe without psychotic features; F43.12 Post-traumatic stress disorder, chronic; H65.90 Unspecified nonsuppurative otitis media, unspecified ear; G47.00 Insomnia, unspecified | CPT/HCPCS: 99213 ==

== ENCOUNTER → 2021-11-04 09:33 | Outpatient (BNVA) | payer BC, SELFPAY | PROVIDERS: PCP Nurse Practitioner Family; Visit Provider Psychiatry & Neurology Psychiatry | DX: F33.2 Major depressive disorder, recurrent severe without psychotic features (principal); F41.1 Generalized anxiety disorder; F43.12 Post-traumatic stress disorder, chronic; H65.90 Unspecified nonsuppurative otitis media, unspecified ear | CPT/HCPCS: 99213 ==

== ENCOUNTER → 2021-11-12 08:21 | Outpatient (BNVA) | payer BC, SELFPAY | PROVIDERS: PCP Nurse Practitioner Family; Visit Provider Nurse Practitioner Family | DX: I10 Essential (primary) hypertension (principal); E55.9 Vitamin D deficiency, unspecified; D64.9 Anemia, unspecified | CPT/HCPCS: 80053; 82306; 85025 ==

== ENCOUNTER → 2021-11-18 11:37 | Outpatient (BNVA) | payer BC, MEDICAID, SELFPAY | PROVIDERS: PCP Nurse Practitioner Family; Visit Provider Nurse Practitioner Family | DX: R35.0 Frequency of micturition (principal); R30.9 Painful micturition, unspecified; R31.21 Asymptomatic microscopic hematuria | CPT/HCPCS: 81000; 87086 ==

== ENCOUNTER → 2021-11-30 12:36 | Outpatient (BNVA) | payer BC, MEDICAID, SELFPAY | PROVIDERS: PCP Nurse Practitioner Family; Visit Provider Specialist | DX: M79.7 Fibromyalgia (principal); G25.0 Essential tremor; G43.909 Migraine, unspecified, not intractable, without status migrainosus; F43.12 Post-traumatic stress disorder, chronic | CPT/HCPCS: 99213; 99214 ==

== ENCOUNTER 2021-12-24 07:22 | Outpatient (CLI) | payer BC, MEDICAID, SELFPAY ==
--- NOTE | 2021-12-24 07:39 | MR_ITS ---
WS: [id number] MRI LUMBAR SPINE NONCONTRAST TECHNIQUE: Sagittal T1, T2 and STIR imaging. Axial T1 and T2 imaging. CLINICAL INFORMATION: M54.50 - Low back pain, unspecified COMPARISON: None. FINDINGS: Mild lumbar curve. No acute compression. No high-grade central canal stenosis. Annular bulging L5-S1 with small annular tear. L1-L2: Normal. L2-L3: Normal. L3-L4: No significant disc bulging. Mild facet arthropathy. Spinal canal and foramen are patent. L4-L5: Slight annular bulging with small LEFT foraminal protrusion. Mild proximal LEFT foraminal narr owing. RIGHT foramen is patent. Mild facet arthropathy. Spinal canal is patent. L5-S1: Mild annular bulging with a small LEFT pericentral protrusion with annular tear. Slight encroa chment on the traversing LEFT S1 nerve root. Foramen are patent. Mild facet arthropathy. Shallow central protrusions C3-C4 C5-C6 and C6-C7 with mild central canal stenosis. Visualized pelvic bony structures: Normal. Paravertebral soft tissues: Normal. MR/MR lumbar spine wo con* [id number] IMPRESSION: 1. Minimal lumbar curve. No acute compression. No high-grade central canal simón nosis. 2. Small LEFT foraminal protrusion L4-L5 encroaches on the proximal exiting LE FT L4 nerve root. Recommend correlation for LEFT L4 nerve root symptoms. 3. Small LEFT pericentral protrusion L5-S1 with a small annular fissure. Sligh t encroachment on the LEFT subarticular recess and LEFT S1 nerve root. 4. Mild facet arthropathy L3-L5. 5. Small central disc protrusions at C3-C4 C5-C6 and C6-C7 with slight contact of the cervical cord and mild central canal stenosis. This could be further ev aluated with cervical spine MRI.
== END 2021-12-24 07:23 | disposition home or self-care (01) ==
LOC: RAD 07:24
PROVIDERS: PCP Nurse Practitioner Family; Visit Provider Nurse Practitioner Family
DX: M51.26 Other intervertebral disc displacement, lumbar region (principal); M51.27 Other intervertebral disc displacement, lumbosacral region; M47.816 Spondylosis without myelopathy or radiculopathy, lumbar region; M50.21 Other cervical disc displacement, high cervical region
CPT/HCPCS: 72148

== ENCOUNTER → 2021-12-31 08:22 | Outpatient (BNVA) | payer BC, MEDICAID, SELFPAY | PROVIDERS: PCP Nurse Practitioner Family; Visit Provider Psychiatry & Neurology Psychiatry | DX: F41.1 Generalized anxiety disorder; F33.2 Major depressive disorder, recurrent severe without psychotic features; F43.12 Post-traumatic stress disorder, chronic | CPT/HCPCS: 99213 ==

== ENCOUNTER → 2022-01-13 14:36 | Outpatient (BNVA) | payer BC, MEDICAID, SELFPAY | PROVIDERS: PCP Nurse Practitioner Family; Visit Provider Orthopaedic Surgery | DX: M54.16 Radiculopathy, lumbar region (principal) | CPT/HCPCS: 72110 ==

== ENCOUNTER → 2022-01-24 09:42 | Outpatient (BNVA) | payer BC, MEDICAID, SELFPAY | PROVIDERS: PCP Nurse Practitioner Family; Referring Provider Orthopaedic Surgery; Visit Provider Anesthesiology Pain Medicine | DX: G89.29 Other chronic pain (principal); M54.50 Low back pain, unspecified | CPT/HCPCS: 99214 ==

== ENCOUNTER → 2022-02-01 14:16 | Outpatient (BNVA) | payer BC, MEDICAID, SELFPAY | PROVIDERS: PCP Nurse Practitioner Family; Visit Provider Anesthesiology Pain Medicine | DX: G89.29 Other chronic pain (principal); M54.16 Radiculopathy, lumbar region | CPT/HCPCS: 64483; 64484; J1100; J3490 ==

== ENCOUNTER → 2022-02-15 10:52 | Outpatient (BNVA) | payer BC, MEDICAID, SELFPAY | PROVIDERS: PCP Nurse Practitioner Family; Visit Provider Anesthesiology Pain Medicine | DX: G89.29 Other chronic pain (principal); M47.816 Spondylosis without myelopathy or radiculopathy, lumbar region; M54.16 Radiculopathy, lumbar region | CPT/HCPCS: 99214 ==

== ENCOUNTER → 2022-02-24 08:40 | Outpatient (BNVA) | payer BC, MEDICAID, SELFPAY | PROVIDERS: PCP Nurse Practitioner Family; Visit Provider Orthopaedic Surgery | DX: M48.062 Spinal stenosis, lumbar region with neurogenic claudication (principal) | CPT/HCPCS: 99214 ==

== ENCOUNTER → 2022-03-11 09:30 | Outpatient (BNVA) | payer BC, MEDICAID, SELFPAY | PROVIDERS: PCP Nurse Practitioner Family; Visit Provider Psychiatry & Neurology Psychiatry | DX: F33.2 Major depressive disorder, recurrent severe without psychotic features (principal); F41.1 Generalized anxiety disorder; F43.12 Post-traumatic stress disorder, chronic | CPT/HCPCS: 99213 ==

== ENCOUNTER → 2022-07-08 10:17 | Outpatient (BNVA) | payer BC, SELFPAY | PROVIDERS: PCP Nurse Practitioner Family; Visit Provider Nurse Practitioner Family | DX: R53.83 Other fatigue (principal); E55.9 Vitamin D deficiency, unspecified; I10 Essential (primary) hypertension; R60.9 Edema, unspecified | CPT/HCPCS: 80053; 82306; 85025 ==

== ENCOUNTER → 2022-07-12 10:42 | Outpatient (BNVA) | payer BC, SELFPAY | PROVIDERS: PCP Nurse Practitioner Family; Visit Provider Orthopaedic Surgery | DX: M54.50 Low back pain, unspecified (principal) | CPT/HCPCS: 72110; 83036 ==

== ENCOUNTER 2022-07-29 05:37 | Day surgery (SDC) | payer BC, MEDICAID, SELFPAY ==
[2022-07-26 08:23] VITALS: BMI 39.5
--- NOTE | 2022-07-26 09:16 | ANES.PREANE2 ---
Pre-Anesthetic Assessment Height/Weight: Height 1.73 m Weight 117.934 kg Preop Diagnosis: acute appendicitis Operation Date: 07/29/22 07:00 Proposed Procedures p Lumbar Spine Decompression [id number] M48.062(Not Applicable) - Jeison Young DO Familial anesthetic complications: none Was Beta Rayshawn taken within 24 hours: Yes Was Clonidine taken within 24 hours: N/A Social No alcohol and No tobacco Exam alert, oriented x 3, clear to auscultation bilaterally and regular rate & rhythm Airway Submandibular: within normal limits Cervical ROM: within normal limits Mallampati: Class III Dentition: full CV/HEM Hypertension GI Gastroesophageal Reflux Disease Metabolic Morbid Obesity [facility] [place] Fibromyalgia, Lower Back Pain and Osteoarthritis/DJD Neuropsych Anxiety and Depression Anesthetic Plan ASA status: 3 Medications/Allergies Home Medications Medication Instructions Recorded Confirmed Last Taken Type cetirizine 10 mg tablet (Allergy 10 mg PO DAILY PRN Allergy Symptoms 07/07/21 07/26/22 Unknown History Relief (cetirizine)) loratadine 10 mg tablet (Claritin) 10 mg PO .daily in am 07/07/21 07/26/22 Unknown History fluticasone propionate 50 See Rx Instructions .Route 08/25/21 07/26/22 Unknown Rx mcg/actuation nasal .COMPLEX #16 grams spray,suspension metoprolol tartrate 25 mg tablet See Rx Instructions .Route 10/18/21 07/26/22 Unknown Rx .COMPLEX #180 tabs cholecalciferol (vitamin D3) 1,250 50,000 unit PO .weekly 2 weeks #2 11/18/21 07/26/22 Unknown Rx mcg (50,000 unit) tablet tabs dexlansoprazole 60 mg See Rx Instructions .Route 06/06/22 07/26/22 Unknown Rx capsule,biphase delayed release .COMPLEX #90 caps (Dexilant) montelukast 10 mg tablet See Rx Instructions .Route 06/16/22 07/26/22 Unknown Rx .COMPLEX #90 tabs aripiprazole 10 mg tablet 10 mg PO DAILY 30 days #30 tabs 07/01/22 07/26/22 Unknown Rx hydroxyzine pamoate 50 mg capsule 50 mg PO .at hs #30 caps 07/01/22 07/26/22 Unknown Rx (Vistaril) paroxetine HCl 40 mg tablet (Paxil) 80 mg PO DAILY #60 tabs 07/01/22 07/26/22 Unknown Rx cyclobenzaprine 10 mg tablet 10 mg PO TID PRN muscle spasm #90 07/12/22 07/26/22 Unknown Rx tabs meloxicam 15 mg tablet See Rx Instructions .Route 07/21/22 07/26/22 Unknown Rx .COMPLEX #30 tabs Allergies Allergy/AdvReac Type Severity Reaction Status Date / Time No Known Allergies Allergy Verified 07/12/22 10:37 [facility] Anesthesia Medical History Chronic back pain Depression History of acute cholecystitis Hypertension Mid back pain Psychiatric care Surgical History History of section x2 S/P laparoscopic appendectomy (08/09/20) Family History Father Suicide Other CAD (coronary artery disease) Diabetes Family history of premature coronary artery disease Hypertension Rheumatoid arthritis Stroke Denies family history of Lupus Lung disease Cancer Social History Smoking and tobacco status: never smoked Second hand smoke exposure: No Alcohol intake: never History of recent travel: Yes (travels from [facility]) Current gender identity: Female Female Reproductive History Date of last menstrual period: 07/26/22 Data Anesthesia Cardiac Studies: No Data to Display
[2022-07-29] VITALS (11 sets, daily range): BP systolic 112–150; BP diastolic 81–97; PULSE 74–94; RESP 12–21; TEMP 36.3–36.9; O2SAT 94–98
--- NOTE | 2022-07-29 | SCC_ITS ---
Procedure done: 1. L4/5 laminectomy with partial facetectomy 2. L5/S1 laminectomy with partial facetectomy 20.3 seconds of fluoroscopic guidance, for a cumulative dose of 11.27 mGy, was provided to Dr. Young by the radiology department. C-arm images of the lumbar spine were saved for the patient's permanent record. [facility]
--- NOTE | 2022-07-29 | XR_ITS ---
WS: [id number] Exam: XR lumbar spine 1V [id number] Date/Time of Exam: 07/29/2022 12:00 AM Reason For Exam: left sided L4-5, L5-S1 decompression 2 anterior posterior C-arm images of the lower lumbar spine are submitted for evaluation. The images depict a localizing port superimposing the L4-5 and L5-S1 disc levels. No other significan t finding on this limited series
[2022-07-29 05:59] LABS: OR HCG Qualitative Urine Negative (Negative)
[2022-07-29] MEDS: sodium chloride 0.9% 1,000 ML 30 ML IV (06:20)
[2022-07-29] MEDS: scopolamine 1.5 Patch 1 PATCH TRANSDERMA (06:22)
--- NOTE | 2022-07-29 06:31 | W.PM.OPSUD ---
Surgery/Procedure H&P Update DATE OF PROCEDURE: July 29, 2022 DATE H&P PERFORMED: 07/12/22 H&P UPDATE INFORMATION: I have reviewed H&P completed within last 30 days, I have examined patient prior to procedure and No changes to prior documentation PREOP DIAGNOSIS: Lumbar stenosis with neurogenic claudication PLANNED PROCEDURE: Operation Date: 07/29/22 07:00 Proposed Procedures p Lumbar Spine Decompression [id number] M48.062(Not Applicable) - Jeison Young DO
[2022-07-29] MEDS: fentaNYL 50 mcg/mL INJ 2mL IVP (06:44)
[2022-07-29] MEDS: ceFAZolin 2,000 MG in sodium chloride 0.9% (plus) 50 ML 100 MG IV (06:54)
--- NOTE | 2022-07-29 07:14 | P.ANESUD_ITS ---
Pre-Anesthetic Update Pre-Anesthetic Assessment: Date of Surgery/Procedure: 07/29/22 Preop Goldie gnosis: Lumbar stenosis with neurogenic claudication Proposed Procedure: Operation Date: 07/29/22 07:00 Proposed Procedures p Lumbar Spine Decompression [id number] M48.062(Not Applicable) - Jeison Young, DO Any changes to Pre-Anesthetic Assessment?: No Last Intake: Intake Last Liquid Date 07/28/22 Last Liquid Time 17:00 Last Solid Date 07/28/22 Last Solid Time 17:00 Vitals: Temperature 97.6 F 07/29/22 06:13 Temperature Source Temporal Artery S can 07/29/22 06:13 Pulse Rate 89 07/29/22 06:13 Respiratory Rate 18 07/29/22 06:44 Respiratory Effort Non-Labored 07/29/22 06:44 Respiratory Depth Normal 07/29/22 06:44 Respiratory Patter n 07/29/22 06:44 Blood Pressure 119/88 07/29/22 06:13 Blood Pressure Zeinab n 98 07/29/22 06:13 Pulse Oximetry 95 07/29/22 06:44 Oxygen Delivery Me thod 07/29/22 06:13 Exam: Pre-Anes Outpt Exam: alert, oriented x 3, clear to auscultation bilaterally and regular rate & rhythm Cardiac Studies: No Data to Display
--- NOTE | 2022-07-29 08:20 | PM.OP ---
Operative Report Date of procedure: July 29, 2022 Pre-op diagnosis: Preop Diagnosis Lumbar stenosis with neurogenic claudication Post-op diagnosis: same Procedure done: 1. L4/5 laminectomy with partial facetectomy 2. L5/S1 laminectomy with partial facetectomy Surgeon: Jeison Young Estimated blood loss (mL): 10 Procedure: 1. L4/5 laminectomy with partial facetectomy 2. L5/S1 laminectomy with partial facetectomy Patient is brought to the operative suite. After undergoing anesthesia they are placed in the prone position. All areas of impingement are well padded. Patient is then prepped and draped in the normal sterile fashion. A skin incision is made over the L4/5 level. This is confirmed under c-arm guidance. A series of dilators are passed and the tubular retractor is docked on the L 4 lamina. A bovie is used to clear the soft tissue off the lamina and the L 4/5 facet joint. A high speed magy is then used to perform the laminectomy and take down the medial aspect of the L 4/5 facet joint. A kerrison rongeure was then used to take down the remaining lamina and smooth the edge of the laminectomy up to the point where the ligamentum flavum attaches. Attention was then brought to the medial aspect of the facet joint. The remaining medial aspect of the superior and inferior aspect of the facet joint were taken down with the kerrison from the pedicle of L 4 to L 5. The facet joint had significant hypertrophy. Attention was then brought to the Ligamentum Flavum. The ligament was taken down from the lamina of L 4 to L 5 and out medially to the remaining facet joint. The ligament was thick. The dura was then exposed. The dura was in good repair. The L 4 nerve was then traced with a curette out the L4/5oramen and found to be adequately decompressed. The L 5 nerve was traced with a curette around the L 5 pedicle. The lateral recess was opened with a kerrison helping to further decompress the L 5 nerve. Wound is then irrigated copiously with saline and surgiflo is used to stop any bleeding. The tubular retractor is removed and A skin incision is made over the L5/S1 level. This is confirmed under c-arm guidance. A series of dilators are passed and the tubular retractor is docked on the L5 lamina. A bovie is used to clear the soft tissue off the lamina and the L 5/S1 facet joint. A high speed magy is then used to perform the laminectomy and take down the medial aspect of the L 5/S1 facet joint. A kerrison rongeure was then used to take down the remaining lamina and smooth the edge of the laminectomy up to the point where the ligamentum flavum attaches. Attention was then brought to the medial aspect of the facet joint. The remaining medial aspect of the superior and inferior aspect of the facet joint were taken down with the kerrison from the pedicle of L 5 to L5/S1. The facet joint had significant hypertrophy. Attention was then brought to the Ligamentum Flavum. The ligament was taken down from the lamina of L 5 to S1 and out medially to the remaining facet joint. The ligament was thick. The dura was then exposed. The dura was in good repair. The L 5 nerve was then traced with a curette out the L 5/S1 foramen and found to be adequately decompressed. The S1 nerve was traced with a curette around the S1 pedicle. The lateral recess was opened with a kerrison helping to further decompress the S1 nerve. Wound is then irrigated copiously with saline and surgiflo is used to stop any bleeding. The tubular retractor is removed and the wound is closed with vicryl and monocryl suture. Glue is then used to protect the wound. A sterile dressing is then placed. Patient was then placed in the supine position and transferred to the PACU in stable condition.
[2022-07-29] MEDS: HYDROmorphone 1 mg/mL INJ 1 mL 0.5 MG IVP (09:08)
[2022-07-29] MEDS: HYDROcodone-acetaminophen 5-325 mg Tablet 2 TAB PO (09:54)
--- NOTE | 2022-07-29 14:11 | ANE.PACU2 ---
Inpatient post-anesthesia follow up: Airway intact: Yes Vital signs: Temperature 98.5 F Pulse Rate 74 Respiratory Rate 18 Blood Pressure 112/81 Pulse Oximetry 96 Oxygen Delivery Me thod Room Air Oxygen Flow Rate 10 Fraction of Inspir ed Oxygen Hydration adequate: Yes Nausea and vomiting: No Pain level: 4 Mental status: Baseline
== END 2022-07-29 10:13 | disposition home or self-care (01) ==
PROVIDERS: Anesthesiology; PCP Nurse Practitioner Family; Visit Provider Orthopaedic Surgery
PROC: (CPT 63005; principal; 2022-07-29 07:00)
DX: M48.062 Spinal stenosis, lumbar region with neurogenic claudication (principal); I10 Essential (primary) hypertension; K21.9 Gastro-esophageal reflux disease without esophagitis; E66.01 Morbid (severe) obesity due to excess calories; Z68.39 Body mass index [BMI] 39.0-39.9, adult; M79.7 Fibromyalgia; F41.9 Anxiety disorder, unspecified; F32.A Depression, unspecified
CPT/HCPCS: 63047; 63048; 72020; 76000; 81025; 84703; J1100; J1170; J2250; J2405; J2704; J2710; J3010; J3490; J7030

== ENCOUNTER 2022-08-01 10:54 | Emergency (ER) | payer BC, MEDICAID, SELFPAY ==
[2022-08-01] VITALS (7 sets, daily range): BP systolic 111–154; BP diastolic 78–89; PULSE 68–90; RESP 16–20; TEMP 36.8; O2SAT 95–100
--- NOTE | 2022-08-01 11:18 | ECG_ITS ---
[facility] Test Date: 2022-08-01 Pat Name: Ree Russell Department: Room: Gender: Female Sorority Mother: : 1985 Requested By: Juan Nolan Order Number: [id number] Cayden MD: Donald Butler M.D. Measurements Intervals Scott Rate: 82 P: 4 NE: 156 QRS: 1 QRSD: 110 T: 27 QT: 328 QTc: 385 Interpretive Statements SINUS RHYTHM INCOMPLETE RIGHT BUNDLE BRANCH BLOCK [90+ ms QRS DURATION, TERMINAL R IN V1/V2, 40+ ms S IN I/aVL/V4/V5/V6] POSSIBLE ANTERIOR MYOCARDIAL INFARCTION , OF INDETERMINATE AGE [30 ms Q WAVE IN V3/V4, OR R < 0.2 mV IN V4] No previous ECG available for comparison Electronically Signed On 08-01-2022 17:36:41 CDT by Donald Butler M.D. [email or web address]
[2022-08-01] MEDS: lactated ringers 1,000 ML 999 ML IV ×2 (12:29→13:22)
[2022-08-01 12:43] LABS: Basophils % 0.5 %; Eosinophils # 0.1 10^3/uL (0.0-0.8); Eosinophils % 0.7 %; Hematocrit 42.3 % (37.0-47.0); Hemoglobin 12.2 g/dL (11.5-15.3); Lymphocytes # 2.2 10^3/uL (0.8-4.8); Lymphocytes % 26.7 %; Mean Corpuscular HGB Conc 28.8 g/dL (30.0-36.0); Mean Corpuscular Hemoglobin 26.8 pg (28.0-34.0); Mean Corpuscular Volume 92.8 fl (81-99); Mean Platelet Volume 10.2 fL (7.4-10.4); Monocytes # 0.6 10^3/uL (0.2-0.9); Monocytes % 7.5 %; Neutrophils # 5.39 10^3/uL (1.8-7.7); Neutrophils % 64.2 %; Nucleated Red Blood Cells % 0 %; Platelet Count 265 10^3/cmm (130-400); Red Blood Count 4.56 10^6/uL (4.1-5.3); Red Cell Distribution Width 13.9 % (12.1-15.1); White Blood Count 8.4 10^3/uL (4.0-10.0)
[2022-08-01 12:45] LABS: Bilirubin Urine Negative (Negative); Blood Urine Moderate (Negative); Glucose Urine UA Negative (Normal); Ketones Urine Negative (Negative); Leukocyte Esterase Urine Negative (Negative); Nitrate Urine Negative; Protein Urine Negative (Negative); Urine Appearance Clear (CLEAR); Urobilinogen Urine 0.2 mg/dL (Negative)
[2022-08-01 12:47] LABS: Add Urine Microscopic? YES; Urine Color Light Yellow (Yellow)
[2022-08-01 13:06] LABS: Bacteria Urine TRACE /hpf; Mucus Urine TRACE /hpf; RBC Urine 0-4 /hpf (0-2); WBC Urine 0-4 /hpf (0-5)
[2022-08-01 13:07] LABS: Add Urine Culture? No
[2022-08-01 14:23] LABS: Alanine Aminotransferase 18 U/L (0-33); Albumin Level 3.5 g/dL (3.5-5.2); Alkaline Phosphatase 103 U/L (35-105); Anion Gap 12.4 (5-19); Aspartate Amino Transferase 23 U/L (0-32); Blood Urea Nitrogen 9 mg/dL (6-20); Calcium 8.9 mg/dL (8.5-10.5); Carbon Dioxide 28 mmol/L (22-29); Chloride 99 mmol/L (98-107); Glomerular Filtration Rate 81.2 mL/min (90-130); Glucose 92 mg/dL (65-115); Osmolality Calculated 278 mOsm/kg (285-295); Potassium 4.4 mmol/L (3.5-5.1); Sodium 135 mmol/L (136-145); Total Bilirubin 0.2 mg/dL (0.15-1.2); Total Protein 6.5 g/dL (6.6-8.7)
[2022-08-01] MEDS: HYDROcodone-acetaminophen 5-325 mg Tablet 1 TAB PO (14:59)
--- NOTE | 2022-08-01 15:01 | W.ED.SYNCOPE ---
HPI - Syncope General: Chief Complaint: Syncope Stated Complaint: fainted, postsurgery Time Seen by Provider: 08/01/22 11:33 Source: patient Mode of arrival: ambulatory History of Present Illness: 36-year-old female presents emergency room she had a back surgery for spinal decompression 4 days ago she generally been doing well but she has had a couple episodes where she is passed out immediately after standing up and walking. She gets lightheaded dizzy passes out and recovers. She not had any chest pain no nausea vomiting diarrhea no bleeding is not vomiting any blood or passing blood in the stool she denies discharge or frequency shortness of breath or cough. complaint: collapsed Onset (ago): day(s) (3) Prodromal symptoms: none Witnessed: Yes - by Bystander Context: standing up Injuries sustained associated with event: none Associated symptoms: Deny abdominal pain, chest pain, fever(s) or nausea History: other (Recent surgery lumbar decompression) Treatments prior to arrival: none Review of Systems Const: Denies: fever(s), chills, body aches, change in appetite, fatigue or malaise ENMT: Denies: throat pain, ear or mastoid pain, nasal discharge or nasal congestion Card: Denies: chest pain, edema, dyspnea on exertion or orthopnea Resp: Denies: dyspnea, productive cough or non-productive cough GI: Denies: abdominal pain, nausea, vomiting, hematemesis, coffee ground emesis, diarrhea, constipation, bloating, hematochezia or melena : Denies: flank pain, difficulty voiding, dysuria, urinary frequency or urinary urgency Skin/Breast: Denies: rash or pruritus PFSH ED PFSH: Medical History Chronic back pain Depression History of acute cholecystitis Hypertension Mid back pain Psychiatric care Surgical History History of section x2 S/P laparoscopic appendectomy (08/09/20) Family History Father Suicide Other CAD (coronary artery disease) Diabetes Family history of premature coronary artery disease Hypertension Rheumatoid arthritis Stroke Denies family history of Lupus Lung disease Cancer Social History Smoking and tobacco status: never smoked Second hand smoke exposure: No Alcohol intake: never History of recent travel: Yes (travels from [facility]) Current gender identity: Female Female Reproductive History: Date of last menstrual period: 07/26/22 Physical Exam Const: GENERAL APPEARANCE: cooperative and comfortable ORIENTATION/CONSCIOUSNESS: Yes awake, Yes oriented to person, Yes oriented to place and Yes oriented to time HENMT: COMMON NORMALS: normocephalic and atraumatic HEAD & SCALP: normocephalic and atraumatic Resp: COMMON NORMALS: normal respiratory effort, No retractions, No use of accessory muscles and clear to auscultation bilaterally AUSCULTATION: clear to auscultation bilaterally Cardio: COMMON NORMALS: regular rate, regular rhythm and No murmurs present (Cardio) RATE: regular rate RHYTHM: regular rhythm GI: COMMON NORMALS: Soft to palpation and No hepatosplenomegaly present AUSCULTATION: Yes normoactive bowel sounds PALPATION: Yes Soft to palpation, No Tenderness to palpation present (GI), No Guarding due to palpation present (GI) and Yes No hepatosplenomegaly present Extremity: COMMON NORMALS: normal to inspection, capillary refill normal, no clubbing, cyanosis or edema, no calf tenderness and no pedal edema Neuro: SENSORIUM/ORIENTATION: Yes oriented to person, Yes oriented to place and Yes oriented to time Skin: COMMON NORMALS: no rashes or lesions noted GENERAL SKIN EXAM: no rashes or lesions noted Course Vital Signs: Vital signs: Vital Signs Temperature 98.2 F 08/01/22 11:11 Pulse Rate 79 08/01/22 12:18 Respiratory Rate 16 08/01/22 12:18 Blood Pressure 124/82 08/01/22 13:30 Pulse Oximetry 98 08/01/22 13:30 Oxygen Delivery Me thod 08/01/22 13:30 MDM - Syncope Medical Decision Making LabsEKG reviewed found on the chart. Patient doing well after fluids discharge home discussed with her I think this from orthostatic hypotension increase fluids follow-up with your primary care doctor or her surgeon next week return if not improved or has worsening symptoms. Medical Records I reviewed the patient's medical records. Lab Data I reviewed the patient's lab results. : 08/01/22 12:39 08/01/22 13:48 Laboratory Results WBC 8.4 10^3/uL (4.0-10.0) 08/01/22 12:39 RBC 4.56 10^6/uL (4.1-5.3) 08/01/22 12:39 Hgb 12.2 g/dL (11.5-15.3) 08/01/22 12:39 Hct 42.3 % (37.0-47.0) 08/01/22 12:39 MCV 92.8 fl (81-99) 08/01/22 12:39 MCH 26.8 pg (28.0-34.0) L 08/01/22 12:39 MCHC 28.8 g/dL (30.0-36.0) L 08/01/22 12:39 RDW 13.9 % (12.1-15.1) 08/01/22 12:39 Plt Count 265 10^3/cmm (130-400) 08/01/22 12:39 MPV 10.2 fL (7.4-10.4) 08/01/22 12:39 Neut % (Auto) 64.2 % 08/01/22 12:39 Lymph % (Auto) 26.7 % 08/01/22 12:39 [place] % (Auto) 7.5 % 08/01/22 12:39 Eos % (Auto) 0.7 % 08/01/22 12:39 Baso % (Auto) 0.5 % 08/01/22 12:39 Neut # (Auto) 5.39 10^3/uL (1.8-7.7) 08/01/22 12:39 Lymph # (Auto) 2.2 10^3/uL (0.8-4.8) 08/01/22 12:39 [place] # (Auto) 0.6 10^3/uL (0.2-0.9) 08/01/22 12:39 Eos # (Auto) 0.1 10^3/uL (0.0-0.8) 08/01/22 12:39 Baso # (Auto) 0.0 10^3/uL (0.0-0.1) 08/01/22 12:39 Nucleated RBC % (auto) 0 % 08/01/22 12:39 Nucleated RBCs # 0.0 /100WBC 08/01/22 12:39 Sodium 135 mmol/L (136-145) L 08/01/22 13:48 Potassium 4.4 mmol/L (3.5-5.1) 08/01/22 13:48 Chloride 99 mmol/L (98-107) 08/01/22 13:48 Carbon Dioxide 28 mmol/L (22-29) 08/01/22 13:48 Anion Gap 12.4 (5-19) 08/01/22 13:48 BUN 9 mg/dL (6-20) 08/01/22 13:48 Creatinine 0.8 mg/dL (0.5-0.9) 08/01/22 13:48 GFR Calculation 81.2 mL/min (90-130) L 08/01/22 13:48 Glucose 92 mg/dL (65-115) 08/01/22 13:48 Calculated Osmolality 278 mOsm/kg (285-295) L 08/01/22 13:48 Calcium 8.9 mg/dL (8.5-10.5) 08/01/22 13:48 Total Bilirubin 0.2 mg/dL (0.15-1.2) 08/01/22 13:48 AST 23 U/L (0-32) 08/01/22 13:48 ALT 18 U/L (0-33) 08/01/22 13:48 Alkaline Phosphatase 103 U/L (35-105) 08/01/22 13:48 Total Protein 6.5 g/dL (6.6-8.7) L 08/01/22 13:48 Albumin 3.5 g/dL (3.5-5.2) 08/01/22 13:48 Globulin 3.0 g/dL (1.3-4.6) 08/01/22 13:48 Urine Color Light yellow (Yellow) 08/01/22 12:34 Urine Appearance Clear (CLEAR) 08/01/22 12:34 Urine pH 7.0 (5-7) 08/01/22 12:34 Ur Specific [place] 1.010 (1.005-1.030) 08/01/22 12:34 Urine Protein Negative (Negative) 08/01/22 12:34 Urine Glucose (UA) Negative (Normal) 08/01/22 12:34 Urine Ketones Negative (Negative) 08/01/22 12:34 Urine Blood Moderate (Negative) A 08/01/22 12:34 Urine Nitrate Negative 08/01/22 12:34 Urine Bilirubin Negative (Negative) 08/01/22 12:34 Urine Urobilinogen 0.2 mg/dL (Negative) 08/01/22 12:34 Ur Leukocyte Esterase Negative (Negative) 08/01/22 12:34 Urine RBC 0-4 /hpf (0-2) H 08/01/22 12:34 Urine WBC 0-4 /hpf (0-5) H 08/01/22 12:34 Ur Squamous Epith Cells 10-15 /hpf (0-5) H 08/01/22 12:34 Amorphous Sediment Not Reportable 08/01/22 12:34 Urine Bacteria Trace /hpf (NONE) 08/01/22 12:34 Urine Mucus Trace /hpf 08/01/22 12:34 Discharge Plan Discharge Patient Disposition: Home Clinical Impression: Orthostatic hypotension Condition: Stable Prescriptions: No Action cetirizine [Allergy Relief (cetirizine)] 10 mg tablet 10 mg PO DAILY PRN (Reason: Allergy Symptoms) loratadine [Claritin] 10 mg tablet 10 mg PO .daily in am Label Comments: Pt states not taking this medicine. cholecalciferol (vitamin D3) 1,250 mcg (50,000 unit) tablet 50,000 unit PO .weekly 14 Days Qty: 2 0RF aripiprazole 10 mg tablet 10 mg PO DAILY 30 Days Qty: 30 2RF hydroxyzine pamoate [Vistaril] 50 mg capsule 50 mg PO .at hs Qty: 30 2RF paroxetine HCl [Paxil] 40 mg tablet 80 mg PO DAILY Qty: 60 2RF cyclobenzaprine 10 mg tablet 10 mg PO TID PRN (Reason: muscle spasm) Qty: 90 0RF fluticasone propionate 50 mcg/actuation spray,suspension See Rx Instructions .ROUTE .COMPLEX Qty: 16 0RF Dose Instruction: SHAKE LIQUID AND USE 1 SPRAY IN EACH NOSTRIL TWICE DAILY Rx Instructions: SHAKE LIQUID AND USE 1 SPRAY IN EACH NOSTRIL TWICE DAILY Dexilant 60 mg capsule,biphase delayed releas See Rx Instructions .ROUTE .COMPLEX Qty: 90 0RF Dose Instruction: TAKE 1 CAPSULE BY MOUTH DAILY Rx Instructions: TAKE 1 CAPSULE BY MOUTH DAILY montelukast 10 mg tablet See Rx Instructions .ROUTE .COMPLEX Qty: 90 0RF Dose Instruction: TAKE 1 TABLET(10 MG) BY MOUTH DAILY Rx Instructions: TAKE 1 TABLET(10 MG) BY MOUTH DAILY meloxicam 15 mg tablet See Rx Instructions .ROUTE .COMPLEX Qty: 30 0RF Dose Instruction: TAKE 1 TABLET BY MOUTH DAILY Rx Instructions: TAKE 1 TABLET BY MOUTH DAILY metoprolol tartrate 25 mg tablet See Rx Instructions .ROUTE .COMPLEX Qty: 180 0RF Dose Instruction: TAKE 1 TABLET(25 MG) BY MOUTH TWICE DAILY Rx Instructions: TAKE 1 TABLET(25 MG) BY MOUTH TWICE DAILY hydrocodone-acetaminophen 5-325 mg tablet 1 - 2 tab PO .Q4-6H Qty: 40 0RF Discharge Orders: Discharge ED (Routine); Ordered 08/01/22 Ordered By: Juan Cueva Referrals: Jayla Caldwell FNP [Primary Care Provider] - Discharge Diet: Usual diet Discharge Activity: Limit activity as instructed Patient Instructions: Opioid Safety, Pain Management Activity Restrictions/Additional Instructions: Avoid exertional activity increase fluid intake. Continue use medications previously prescribed. Coding Level of Care Code ED Artist'S Manager for Nicolle Boles
== END 2022-08-01 14:59 | disposition home or self-care (01) ==
PROVIDERS: Emergency Provider Family Medicine; PCP Nurse Practitioner Family
DX: I95.1 Orthostatic hypotension (principal); I10 Essential (primary) hypertension; I45.10 Unspecified right bundle-branch block; Z82.49 Family history of ischemic heart disease and other diseases of the circulatory system
CPT/HCPCS: 36415; 80053; 81001; 85025; 93005; 96360; 96361; 99285

== ENCOUNTER → 2022-12-26 08:56 | Outpatient (BNVA) | payer BC, SELFPAY | PROVIDERS: PCP Nurse Practitioner Family; Visit Provider Nurse Practitioner Family | DX: R53.83 Other fatigue (principal); E78.5 Hyperlipidemia, unspecified; M54.9 Dorsalgia, unspecified; G89.29 Other chronic pain; R60.9 Edema, unspecified; E55.9 Vitamin D deficiency, unspecified | CPT/HCPCS: 80053; 80061; 84439; 84443; 84481 ==

== ENCOUNTER → 2022-12-27 11:09 | Outpatient (BNVA) | payer BC, SELFPAY | PROVIDERS: PCP Nurse Practitioner Family; Visit Provider Nurse Practitioner Family | DX: R73.09 Other abnormal glucose (principal) | CPT/HCPCS: 83036 ==

== ENCOUNTER → 2023-01-31 10:48 | Outpatient (BNVA) | payer BC, SELFPAY | PROVIDERS: PCP Nurse Practitioner Family; Visit Provider Nurse Practitioner Family | DX: Z53.20 Procedure and treatment not carried out because of patient's decision for unspecified reasons (principal); N76.0 Acute vaginitis; B96.89 Other specified bacterial agents as the cause of diseases classified elsewhere; N89.8 Other specified noninflammatory disorders of vagina | CPT/HCPCS: 87070; 87184; 87205; 88175 ==

== ENCOUNTER → 2023-02-07 10:27 | Outpatient (BNVA) | payer BC, SELFPAY | PROVIDERS: PCP Nurse Practitioner Family; Visit Provider Nurse Practitioner Family | DX: N76.0 Acute vaginitis (principal); B96.89 Other specified bacterial agents as the cause of diseases classified elsewhere | CPT/HCPCS: 87070; 87077; 87184; 87205 ==

== ENCOUNTER → 2023-02-28 08:50 | Outpatient (BNVA) | payer BC, SELFPAY | PROVIDERS: PCP Nurse Practitioner Family; Visit Provider Nurse Practitioner Family | DX: N76.0 Acute vaginitis (principal); B96.89 Other specified bacterial agents as the cause of diseases classified elsewhere | CPT/HCPCS: 87081 ==

== ENCOUNTER → 2023-12-18 08:55 | Outpatient (BNVA) | payer BC, SELFPAY | PROVIDERS: PCP Nurse Practitioner Family; Visit Provider Nurse Practitioner Family | DX: N39.0 Urinary tract infection, site not specified (principal) | CPT/HCPCS: 81000 ==

== ENCOUNTER → 2024-01-24 13:06 | Outpatient (BNVA) | payer BC, SELFPAY | PROVIDERS: PCP Nurse Practitioner Family; Visit Provider Nurse Practitioner | DX: R39.9 Unspecified symptoms and signs involving the genitourinary system (principal); R50.9 Fever, unspecified | CPT/HCPCS: 81000; 87077; 87086; 87184; 87400 ==

== ENCOUNTER → 2024-02-02 11:06 | Outpatient (BNVA) | payer BC, SELFPAY | PROVIDERS: PCP Nurse Practitioner Family; Visit Provider Nurse Practitioner Family | DX: N30.00 Acute cystitis without hematuria (principal); K92.1 Melena | CPT/HCPCS: 81000; 87086 ==

== ENCOUNTER → 2024-02-05 09:35 | Outpatient (BNVA) | payer BC, SELFPAY | PROVIDERS: PCP Nurse Practitioner Family; Visit Provider Nurse Practitioner Family | DX: K92.1 Melena (principal) | CPT/HCPCS: 82274 ==

== ENCOUNTER → 2024-02-07 14:41 | Outpatient (BNVA) | payer BC, SELFPAY | PROVIDERS: PCP Nurse Practitioner Family; Visit Provider Nurse Practitioner Family | DX: N30.00 Acute cystitis without hematuria (principal); D64.9 Anemia, unspecified | CPT/HCPCS: 81000; 85025 ==

== ENCOUNTER 2024-02-08 15:13 | Emergency (ER) | payer BC, MEDICAID, SELFPAY ==
[2024-02-08 15:27] VITALS: BP 158/94; PULSE 73; RESP 15; TEMP 36.9; O2SAT 97; BMI 40.1
--- NOTE | 2024-02-08 15:49 | CTR_ITS ---
PROCEDURE INFORMATION: Exam: CT Abdomen And Pelvis With Contrast Exam date and time: 02/08/2024 5:00 PM Age: 38 years old Clinical indication: Nausea and vomiting; Abdominal pain; Generalized; Prior surgery; Surgery date: 6+ months; Surgery type: C section TECHNIQUE: Imaging protocol: Computed tomography of the abdomen and pelvis with contrast. Axial, coronal and sagittal reformatted images were created and reviewed. Radiation optimization: All CT scans at this facility use at least one of these dose optimization techniques: automated exposure control; mA and/or kV adjustment per patient size (includes targeted exams where dose is matched to clinical indication); or iterative reconstruction. Contrast material: OMNI 350; Contrast volume: 100 ml; Contrast route: INTRAVENOUS (IV); COMPARISON: CT abdomen pelvis w con* [id number] 08/08/2020 7:06 PM RADIATION DOSE METRICS: Total DLP (mGy-cm): 1099.93 FINDINGS: Liver: Mild hepatomegaly. Diffuse hepatic steatosis with more focal fatty infiltration adjacent to the gallbladder fossa. Gallbladder and bile ducts: Status post cholecystectomy. Mild central biliary ductal dilatation, likely postsurgical. Pancreas: Unremarkable. Spleen: Unremarkable. Adrenal glands: Normal. No mass. Kidneys and ureters: 1.6 cm right renal cyst (no follow-up is indicated based on the imaging appearance). Subcentimeter low-density left renal lesions, measuring up to 6 mm, too small to characterize. Subtle right renal cortical mottling/striation. No radiodense calculi. No hydronephrosis. Stomach and bowel: No bowel wall thickening. No obstruction. No pneumatosis. Appendix: Status post appendectomy. Intraperitoneal space: No free fluid. No organized fluid collection. No free air. Vasculature: Unremarkable. No aneurysm. Lymph nodes: No pathologically enlarged lymph nodes. Urinary bladder: Unremarkable as visualized. Reproductive: Unremarkable. Bones/joints: No acute osseous abnormality. Soft tissues: Small, fat containing umbilical hernia. CT/CT abdomen pelvis w con* [id number] IMPRESSION: 1. Subtle right renal cortical mottling/striation, raising concern for acute pyelonephritis. Correlate with urinalysis. 2. Additional findings, as above. COMMENTS: Consistent with the [place] [employer]'s Incidental Findings Committee white paper (J Am Mar Radiol 2018): Any incidental renal lesion less than 1 cm or classified as too small to characterize, or any incidental cystic renal lesion characterized as simple-appearing, is likely benign. No follow-up imaging is recommended for these lesions per consensus recommendations based on imaging criteria.
--- NOTE | 2024-02-08 15:50 | ED_ITS ---
HPI - Abdominal Pain 2 General: Chief Complaint: Abdominal Pain Stated Complaint: sent by , blood in stool, abd pain Time Seen by Provider: 02/08/24 15:36 Source: patient Mode of arrival: ambulatory Limitations: no limitations History of Present Illness: 38-year-old is here with multiple medica l complaints. She states that she has been having a headache states over the last week she has also been having some abdominal cramping she has been having vomiting states she is also had had some diarrhea. States that yesterday she had had some slight bright red blood in her stool she denies any today. She was seen at [facility] on Easter was told that everything was normal. She states she does have chronic anemia her last hemoglobin a bleed was 8. She denies any fevers. Associated Symptoms: Reports hematochezia, nausea and vomiting; Denies chills, diarrhea, dysuria and fever(s) Review of Systems 2 Const: Denies: fever(s), chills, body aches or change in appetite ENMT: Denies: throat pain or dental pain Card: Denies: chest pain Resp: Denies: dyspnea GI: Reports: abdominal pain, nausea, vomiting and hematochezia; Denies: diarrhea : Denies: dysuria Musc: Denies: neck pain or back pain Skin/Breast: Denies: rash Neuro: Reports: headache(s) PFS ED 2 PFSH: Medical History Environmental and seasonal allergies Psychiatric care Chronic back pain Mid back pain Hypertension Depression History of acute cholecystitis Surgical History S/P laparoscopic appendectomy (08/09/20) History of section x2 Family History Father Suicide Other CAD (coronary artery disease) Diabetes Family history of premature coronary artery disease Hypertension Rheumatoid arthritis Stroke Denies family history of Lupus Lung disease Cancer Social History Smoking and tobacco/nicotine status: never used tobacco/nicotine Second hand smoke exposure: No Alcohol intake: never Substance/Drug Use: never Current gender identity: Female Physical Exam 2 Const: COMMON NORMALS: no acute distress, patient oriented x3 and healthy appearing HENMT: COMMON NORMALS: normocephalic and atraumatic HEAD & SCALP: n ormocephalic and atraumatic Neck/C-Spine: COMMON NORMALS: full ROM and supple Chest: COMMONS NORMALS: normal inspection of the chest Resp: COMMON NORMALS: normal respiratory effort, No retractions, No use of accessory muscles and clear to auscultation bilaterally AUSCULTATION: clear to auscultation bilaterally Cardio: COMMON NORMALS: regular rate, regular rhythm and No murmurs present (Cardio) RATE: regular rate RHYTHM: regular rhythm GI: COMMON NORMALS: Normal to inspection, nondistended, normoactive bowel sounds present, Soft to palpation, non-tender and no masses PALPATION: Yes Soft to palpation Extremity: COMMON NORMALS: normal to inspection and full ROM Neuro: COMMON NORMALS: patient oriented x3, moves all extremities and no focal motor deficits Psych: COMMON NORMALS: mental status grossly normal, Normal thought process present and cooperative THOUGHT PROCESS: Normal thought process present Skin: COMMON NORMALS: no rashes or lesions noted and no wounds GENERAL SKIN EXAM: no rashes or lesions noted Course 2 Vital Signs: Vital signs: Vital Signs Temperature 98.4 F 02/08/24 15:27 Pulse Rate 73 02/08/24 15:27 Respiratory Rate 16 02/08/24 16:31 Blood Pressure 158/94 02/08/24 15:27 Pulse Oximetry 96 02/08/24 16:31 Oxygen Delivery Me thod Room Air 02/08/24 15:27 MDM - Abdominal Pain Medical Decision Making Patient presents with multiple complaints including vomiting and abdominal pains been going on for weeks she complains of some blood in her stool but none today her hemoglobin blood work here is all normal CT scan showed no acute findings urine shows no signs of infection we will prescribe her Zofran she is stable for discharge she is follow-up with PCP return if worsening. Medical Records I reviewed the patient's medical records. Lab Data I reviewed the patient's lab results. 02/08/24 16:12 02/08/24 16:12 Labs/Radiology: Radiology Impressions Abdomen/Pelvis CT 02/08/24 15:49 IMPRESSION: 1. Subtle right renal cortical mottling/striation, raising concern for acute pyelonephritis. Correlate with urinalysis. 2. Additional findings, as above. COMMENTS: Consistent with the [employer] [place] [employer]'s Incidental Findings Committee white paper (J Am Mar Radiol 2018): Any incidental renal lesion less than 1 cm or classified as too small to characterize, or any incidental cystic renal lesion characterized as simple-appearing, is likely benign. No follow-up imaging is recommended for these lesions per consensus recommendations based on imaging criteria. Laboratory Results WBC 7.47 10^3/uL (3.29-11.43) 02/08/24 16:12 RBC 4.52 10^6/uL (3.85-5.65) 02/08/24 16:12 Hgb 11.10 g/dL (11.27-16.99) L 02/08/24 16:12 Hct 36.3 % (36-47) 02/08/24 16:12 MCV 80.3 fl (85-98) L 02/08/24 16:12 MCH 24.6 pg (27-33) L 02/08/24 16:12 MCHC 30.6 g/dL (30-55) 02/08/24 16:12 RDW 20.2 % (12.1-15.1) H 02/08/24 16:12 Plt Count 381 10^3/cmm (157-399) 02/08/24 16:12 MPV 9.4 fL (7.4-10.4) 02/08/24 16:12 Neut % (Auto) 66.4 % 02/08/24 16:12 Lymph % (Auto) 26.6 % 02/08/24 16:12 Rains % (Auto) 5.8 % 02/08/24 16:12 Eos % (Auto) 0.1 % 02/08/24 16:12 Baso % (Auto) 0.8 % 02/08/24 16:12 Neut # (Auto) 4.96 10^3/uL (1.8-7.7) 02/08/24 16:12 Lymph # (Auto) 2.0 10^3/uL (0.8-4.8) 02/08/24 16:12 Rains # (Auto) 0.4 10^3/uL (0.2-0.9) 02/08/24 16:12 Eos # (Auto) 0.0 10^3/uL (0.0-0.8) 02/08/24 16:12 Baso # (Auto) 0.1 10^3/uL (0.0-0.1) 02/08/24 16:12 Nucleated RBC % (auto) 0 % 02/08/24 16:12 Nucleated RBCs # 0.0 /100WBC 02/08/24 16:12 PT 13.70 SECONDS (12.1-14.9) 02/08/24 16:12 INR 1.02 (0.8-1.2) 02/08/24 16:12 APTT 27.6 SECONDS (23.9-36.7) 02/08/24 16:12 Sodium 136 mmol/L (136-145) 02/08/24 16:12 Potassium 4.5 mmol/L (3.5-5.1) 02/08/24 16:12 Chloride 99 mmol/L (98-107) 02/08/24 16:12 Carbon Dioxide 26 mmol/L (22-29) 02/08/24 16:12 Anion Gap 15.5 (5-19) 02/08/24 16:12 BUN 10 mg/dL (6-20) 02/08/24 16:12 Creatinine 0.9 mg/dL (0.5-0.9) 02/08/24 16:12 GFR Calculation 70.1 mL/min (90-130) L 02/08/24 16:12 Glucose 100 mg/dL (65-115) 02/08/24 16:12 Calculated Osmolality 281 mOsm/kg (285-295) L 02/08/24 16:12 Calcium 9.6 mg/dL (8.5-10.5) 02/08/24 16:12 Total Bilirubin 0.2 mg/dL (0.15-1.2) 02/08/24 16:12 AST 22 U/L (0-32) 02/08/24 16:12 ALT 17 U/L (0-33) 02/08/24 16:12 Alkaline Phosphatase 97 U/L (35-105) 02/08/24 16:12 Total Protein 8.1 g/dL (6.6-8.7) 02/08/24 16:12 Albumin 4.4 g/dL (3.5-5.2) 02/08/24 16:12 Globulin 3.7 g/dL (1.3-4.6) 02/08/24 16:12 Lipase 45 U/L (13-60) 02/08/24 16:12 HCG, Qual Negative (Negative) 02/08/24 16:12 Urine Color Yellow (Yellow) 02/08/24 16:12 Urine Appearance Clear (CLEAR) 02/08/24 16:12 Urine pH 7 (5-7) 02/08/24 16:12 Ur Specific [place] 1.015 (1.005-1.030) 02/08/24 16:12 Urine Protein Neg (Negative) 02/08/24 16:12 Urine Glucose (UA) Norm (Normal) 02/08/24 16:12 Urine Ketones Negative (Negative) 02/08/24 16:12 Urine Blood Neg (Negative) 02/08/24 16:12 Urine Nitrate Negative (Negative) 02/08/24 16:12 Urine Bilirubin Neg (Negative) 02/08/24 16:12 Urine Urobilinogen Norm mg/dL (Negative) 02/08/24 16:12 Ur Leukocyte Esterase Negative (Negative) 02/08/24 16:12 All radiology interpretation(s) finalized by discharge Discharge Plan Discharge Patient Disposition: Home Clinical Impression: Abdominal pain, Vomiting Condition: Stable Prescriptions: New ondansetron 4 mg tablet,disintegrating 4 mg PO Q6H PRN (Reason: nausea and vomiting) Qty: 14 0RF No Action buspirone 10 mg tablet 20 mg PO BID Qty: 120 2RF aripiprazole 10 mg tablet 10 mg PO DAILY 30 Days Qty: 30 2RF hydrocodone-acetaminophen 7.5-325 mg tablet 1 tab PO Q4H PRN (Reason: Pain) Slow Release Iron 140 mg (45 mg iron) tablet extended release 140 mg PO QDAY pantoprazole [Protonix] 40 mg tablet,delayed release (DR/EC) 40 mg PO DAILY Qty: 90 0RF bupropion HCl 300 mg tablet extended release 24 hr 300 mg PO QAM cetirizine 10 mg tablet 10 mg PO DAILY meloxicam 15 mg tablet 15 mg PO DAILY paroxetine HCl 20 mg tablet 20 mg PO QPM Paxil 40 mg tablet 40 mg PO QAM fluticasone propionate 50 mcg/actuation spray,suspension 1 spray intranasal BID metoprolol tartrate 25 mg tablet 25 mg PO BID cholecalciferol (vitamin D3) 1,250 mcg (50,000 unit) tablet 50,000 unit PO DAILY Discharge Orders: Discharge ED (Routine); Ordered 02/08/24 Ordered By: Ron Baugh Referrals: Jayla Caldwell FNP [Primary Care Provider] - 1-3 days Discharge Diet: Advance as tolerated Discharge Activity: Resume usual activity Patient Instructions: Acute Nausea and Vomiting (ED), Abdominal Pain (ED) Coding Level of Care Code ED Low Heel Builder for Nicolle Boles
[2024-02-08 16:31] VITALS: RESP 16; O2SAT 96
[2024-02-08] MEDS: morphine 4 mg/mL SDV 1 mL IVP (16:31)
[2024-02-08] MEDS: ondansetron 2 mg/ML SDV 2 mL 4 MG IVP (16:31)
[2024-02-08 16:32] LABS: Basophils # 0.1 10^3/uL (0.0-0.1); Basophils % 0.8 %; Eosinophils % 0.1 %; Hematocrit 36.3 % (36-47); Lymphocytes % 26.6 %; Mean Corpuscular HGB Conc 30.6 g/dL (30-55); Mean Corpuscular Hemoglobin 24.6 pg (27-33); Mean Corpuscular Volume 80.3 fl (85-98); Mean Platelet Volume 9.4 fL (7.4-10.4); Monocytes # 0.4 10^3/uL (0.2-0.9); Monocytes % 5.8 %; Neutrophils # 4.96 10^3/uL (1.8-7.7); Neutrophils % 66.4 %; Nucleated Red Blood Cells % 0 %; Platelet Count 381 10^3/cmm (157-399); Red Blood Count 4.52 10^6/uL (3.85-5.65); Red Cell Distribution Width 20.2 % (12.1-15.1); White Blood Count 7.47 10^3/uL (3.29-11.43)
[2024-02-08 16:37] LABS: HCG, Serum Qual Negative (Negative)
[2024-02-08 16:39] LABS: INR 1.02 (0.8-1.2); Partial Thromboplastin Time 27.6 SECONDS (23.9-36.7)
[2024-02-08 16:40] LABS: Add Urine Microscopic? NO; Charge for UA Resulting for Rev
[2024-02-08 16:43] LABS: Alanine Aminotransferase 17 U/L (0-33); Albumin Level 4.4 g/dL (3.5-5.2); Alkaline Phosphatase 97 U/L (35-105); Anion Gap 15.5 (5-19); Aspartate Amino Transferase 22 U/L (0-32); Blood Urea Nitrogen 10 mg/dL (6-20); Calcium 9.6 mg/dL (8.5-10.5); Carbon Dioxide 26 mmol/L (22-29); Chloride 99 mmol/L (98-107); Creatinine Clr Calc Pharmacy 115.3849; Globulin 3.7 g/dL (1.3-4.6); Glomerular Filtration Rate 70.1 mL/min (90-130); Glucose 100 mg/dL (65-115); Lipase 45 U/L (13-60); Osmolality Calculated 281 mOsm/kg (285-295); Potassium 4.5 mmol/L (3.5-5.1); Sodium 136 mmol/L (136-145); Total Bilirubin 0.2 mg/dL (0.15-1.2); Total Protein 8.1 g/dL (6.6-8.7)
[2024-02-08 16:50] LABS: Bilirubin Urine Neg (Negative); Blood Urine Neg (Negative); Glucose Urine UA Norm (Normal); Ketones Urine Negative (Negative); Leukocyte Esterase Urine Negative (Negative); Nitrate Urine Negative (Negative); Protein Urine Neg (Negative); Specific Gravity, Urine 1.015 (1.005-1.030); Urine Appearance Clear (CLEAR); Urine Color Yellow (Yellow); Urobilinogen Urine Norm (Negative); pH Urine 7 (5-7)
[2024-02-08] MEDS: iohexol 350 mg/mL 500 mL Btl (per mL) IV (17:00)
[2024-02-08 17:01] VITALS: BP 153/96; O2SAT 94
== END 2024-02-08 17:59 | disposition home or self-care (01) ==
PROVIDERS: Family Medicine; Emergency Provider Emergency Medicine; PCP Nurse Practitioner Family
DX: R10.9 Unspecified abdominal pain (principal); R11.11 Vomiting without nausea; I10 Essential (primary) hypertension
CPT/HCPCS: 74177; 80053; 81003; 83690; 84703; 85025; 85610; 85730; 96374; 96375; 99285; J2270; J2405; Q9967

== ENCOUNTER → 2024-02-20 15:21 | Outpatient (BNVA) | payer BC, MEDICAID, SELFPAY | PROVIDERS: PCP Nurse Practitioner Family; Referring Provider Nurse Practitioner Family; Visit Provider Student in an Organized Health Care Education/Training Program | DX: M23.306 Other meniscus derangements, unspecified meniscus, right knee | CPT/HCPCS: 73552; 73560; 73565 ==

== ENCOUNTER 2024-03-20 09:02 | Day surgery (SDC) | payer BC, MEDICAID, SELFPAY ==
[2024-03-20] MEDS: sodium chloride 0.9% 1,000 ML 30 ML IV (09:43)
[2024-03-20 09:45] VITALS: BP 133/86; PULSE 63; RESP 18; TEMP 36.2; O2SAT 96
--- NOTE | 2024-03-20 09:48 | ANES.PREANE2 ---
Pre-Anesthetic Assessment Height/Weight: Height 1.73 m Weight 120.202 kg Temp Pulse Resp BP Pulse Ox O2 Del Method 97.2 F L 63 18 133/86 96 Room Air 03/20/24 09:45 03/20/24 09:45 03/20/24 09:45 03/20/24 09:45 03/20/24 09:45 03/20/24 09:45 Operation Date: 03/20/24 10:30 Proposed Procedures p EGD 05531, 05650, G0105, D50.9, K21.9, K62.5, R10.9(Not Applicable) - Jarad Vanegas DO s Colonoscopy(Not Applicable) - Jarad Vanegas DO Familial anesthetic complications: None Was Beta Rayshawn taken within 24 hours: N/A Was Clonidine taken within 24 hours: N/A Last intake: > 8 hrs Social No alcohol and No tobacco Exam alert, oriented x 3, clear to auscultation bilaterally and regular rate & rhythm Airway Mallampati: Class III Dentition: full CV/HEM Hypertension GI Gastroesophageal Reflux Disease [facility] [place] Fibromyalgia Anesthetic Plan ASA status: 2 Anesthesia: MAC Risk of > 500 ml blood loss (7ml/kg in children): No Medications/Allergies Home Medications Medication Instructions Recorded Confirmed Last Taken Type ferrous sulfate 140 mg (45 mg 140 mg PO QDAY 02/02/24 03/18/24 03/19/24 History iron) tablet,extended release (Slow Release Iron) hydrocodone 7.5 mg-acetaminophen 1 tab PO Q4H PRN Pain 02/02/24 03/18/24 03/20/24 History 325 mg tablet bupropion HCl 300 mg 24 hr tablet, 300 mg PO QAM 02/08/24 03/18/24 03/19/24 History extended release cetirizine 10 mg tablet 10 mg PO DAILY 02/08/24 03/18/24 03/19/24 History cholecalciferol (vitamin D3) 1,250 50,000 unit PO DAILY 02/08/24 03/18/24 03/19/24 History mcg (50,000 unit) tablet meloxicam 15 mg tablet 15 mg PO DAILY 02/08/24 03/18/24 03/19/24 History metoprolol tartrate 25 mg tablet 25 mg PO BID 02/08/24 03/18/24 03/20/24 History crutches #1 ea 02/12/24 02/21/24 03/19/24 Rx pantoprazole 40 mg tablet,delayed 40 mg PO BID 6 weeks #84 tabs 02/19/24 03/18/24 03/19/24 Rx release (Protonix) aripiprazole 10 mg tablet 10 mg PO DAILY 30 days #30 tabs 03/15/24 03/18/24 03/19/24 Rx buspirone 10 mg tablet 20 mg (2 x 10 mg) PO BID #120 tabs 03/15/24 03/18/24 03/19/24 Rx paroxetine HCl 20 mg tablet 20 mg PO QPM #30 tabs 03/15/24 03/18/24 03/19/24 Rx paroxetine HCl 40 mg tablet (Paxil) 40 mg PO QAM #30 tabs 03/15/24 03/18/24 03/19/24 Rx fluticasone propionate 50 1 spray intranasal BID PRN 03/18/24 03/18/24 03/19/24 History mcg/actuation nasal Congestion spray,suspension (Flonase Allergy Relief) montelukast 10 mg tablet 10 mg PO DAILY 03/18/24 03/18/24 03/19/24 History Allergies Allergy/AdvReac Type Severity Reaction Status Date / Time promethazine Allergy syncope Verified 03/18/24 12:19 Current Medications Generic Name Dose Route Start Last Admin Trade Name Freq PRN Reason Stop Dose Admin Sodium Chloride 1,000 mls @ 30 mls/hr 03/20/24 09:15 03/20/24 09:43 Sodium Chloride 0.9% IV 03/21/24 09:14 30 mls/hr .Q24H DHEERAJ Administration PFSH Anesthesia Medical History Environmental and seasonal allergies Psychiatric care Chronic back pain Mid back pain Hypertension Depression History of acute cholecystitis Surgical History S/P laparoscopic appendectomy (08/09/20) History of section x2 Family History Father Suicide Other CAD (coronary artery disease) Diabetes Family history of premature coronary artery disease Hypertension Rheumatoid arthritis Stroke Denies family history of Lupus Lung disease Cancer Social History Smoking and tobacco/nicotine status: never used tobacco/nicotine Second hand smoke exposure: No Alcohol intake: never Substance/Drug Use: never Current gender identity: Female Data Anesthesia Cardiac Studies: No Data to Display
[2024-03-20 10:20] LABS: OR HCG Qualitative Urine Negative (Negative)
--- NOTE | 2024-03-20 10:27 | W.PM.OPSUD ---
Surgery/Procedure H&P Update DATE OF PROCEDURE: March 20, 2024 DATE H&P PERFORMED: 02/19/24 H&P UPDATE INFORMATION: I have reviewed H&P completed within last 30 days, I have examined patient prior to procedure and No changes to prior documentation PLANNED PROCEDURE: Operation Date: 03/20/24 10:30 Proposed Procedures p EGD 91509, 80999, G0105, D50.9, K21.9, K62.5, R10.9(Not Applicable) - DO jaci Taylor Colonoscopy(Not Applicable) - Jarad Vanegas DO
[2024-03-20 10:52] VITALS: BP 114/83; PULSE 72; RESP 16; TEMP 36.1; O2SAT 98
[2024-03-20 11:09] VITALS: BP 124/88; PULSE 67; RESP 18; O2SAT 98
--- NOTE | 2024-03-20 11:47 | ANE.PACU2 ---
Inpatient post-anesthesia follow up: Airway intact: Yes Vital signs: Temperature 97.0 F Pulse Rate 67 Respiratory Rate 18 Blood Pressure 124/88 Pulse Oximetry 98 Oxygen Delivery Me thod Room Air Oxygen Flow Rate 3 Fraction of Inspir ed Oxygen Hydration adequate: Yes Nausea and vomiting: No Pain level: 1 Mental status: Baseline
== END 2024-03-20 11:36 | disposition home or self-care (01) ==
PROVIDERS: Anesthesiology; PCP Nurse Practitioner Family; Visit Provider Surgery
PROC: 0DJ08ZZ Inspection of Upper Intestinal Tract, Via Natural or Artificial Opening Endoscopic (ICD-10-PCS; CPT 43235; principal; 2024-03-20 10:30)
PROC: 0DJD8ZZ Inspection of Lower Intestinal Tract, Via Natural or Artificial Opening Endoscopic (ICD-10-PCS; CPT 45378; 2024-03-20 10:30)
DX: K62.5 Hemorrhage of anus and rectum (principal); R10.9 Unspecified abdominal pain; D50.9 Iron deficiency anemia, unspecified; K21.9 Gastro-esophageal reflux disease without esophagitis; K64.8 Other hemorrhoids; I10 Essential (primary) hypertension; M79.7 Fibromyalgia; F32.A Depression, unspecified
CPT/HCPCS: 43239; 45378; 81025; 88305; J2704; J7030

== ENCOUNTER → 2024-06-18 08:43 | Outpatient (BNVA) | payer BC, MEDICAID, SELFPAY | PROVIDERS: PCP Nurse Practitioner Family; Visit Provider Nurse Practitioner Family | DX: D64.9 Anemia, unspecified (principal) | CPT/HCPCS: 83540 ==

== ENCOUNTER → 2025-01-22 09:25 | Outpatient (BNVA) | payer BC, SELFPAY | PROVIDERS: PCP Nurse Practitioner Family; Visit Provider Nurse Practitioner Family | DX: I10 Essential (primary) hypertension (principal); E55.9 Vitamin D deficiency, unspecified | CPT/HCPCS: 80053; 80061; 82306 ==

== ENCOUNTER → 2025-05-10 10:45 | Outpatient (BNVA) | payer BC, SELFPAY | PROVIDERS: PCP Nurse Practitioner Family; Visit Provider Family Medicine | DX: N92.6 Irregular menstruation, unspecified (principal) | CPT/HCPCS: 81025 ==

== ENCOUNTER → 2025-07-10 09:36 | Outpatient (BNVA) | payer BC, SELFPAY | PROVIDERS: PCP Nurse Practitioner Family; Visit Provider Nurse Practitioner Family | DX: R71.8 Other abnormality of red blood cells (principal) | CPT/HCPCS: 85025 ==

== ENCOUNTER → 2025-08-04 15:20 | Outpatient (BNVA) | payer BC, SELFPAY | PROVIDERS: PCP Nurse Practitioner Family; Visit Provider Nurse Practitioner Family | DX: N30.00 Acute cystitis without hematuria (principal) | CPT/HCPCS: 81000 ==